=== PATIENT | female | born 1955 | race Caucasian/White ===

== ENCOUNTER 2022-02-19 09:17 | Outpatient (REF) | payer MEDICARE, SELFPAY ==
[2022-02-19 11:33] LABS: MANUAL DIFF FLAG NO
[2022-02-19 11:38] LABS: Basophils Percent Auto 0.2 % (0-2); Eosinophils Absolute Auto 0.1 X10*3/uL (0.0-0.4); Eosinophils Percent Auto 1.1 % (0-4); Hematocrit 44.4 % (37.0-47.0); Hemoglobin 14.2 g/dl (12.0-16.0); Imm Gran Abs Auto 0.01 X10*3/uL (0.00-0.03); Imm Gran Pct Auto 0.2 % (0.0-0.4); Lymphocytes Absolute Auto 1.6 X10*3/uL (1.2-4.9); Lymphocytes Percent Auto 25.3 % (20-40); Mean Corpuscular Hemoglobin 29.9 pg (27.0-33.0); Mean Corpuscular Volume 93.5 fL (80.0-98.0); Mean Platelet Volume 10.1 fL (9.4-12.3); Monocytes Absolute Auto 0.5 X10*3/uL (0.1-1.2); Neutrophils Percent Auto 65.2 % (45-73); Platelet Count 210 X10*3/uL (160-400); Red Blood Count 4.75 X10*6/uL (4.20-5.50); Red Cell Distribution Width 12.7 % (11.0-16.0); White Blood Count 6.1 X10*3/uL (4.8-10.8)
[2022-02-19 12:09] LABS: Free T4 (Free Thyroxine) 1.29 ng/dL (0.71-1.85); Thyroid Stimulating Hormone 0.34 uIU/mL (0.32-4.0)
[2022-02-19 12:14] LABS: Alanine Aminotransferase 22 U/L (0-31); Albumin Level 4.5 g/dL (3.5-5.0); Alkaline Phosphatase 42 U/L (39-117); Anion Gap 14 (12-20); Aspartate Amino Transferase 26 U/L (5-31); Bilirubin Total 1.1 mg/dL (0.0-1.0); Blood Urea Nitrogen 16 mg/dL (9-16); Calcium 9.3 mg/dL (8.4-10.2); Carbon Dioxide 25 mmol/L (22-29); Chloride 107 mmol/L (96-108); Cholesterol 152 mg/dL; Estimated Glomerular Filt Rate > 60; Glucose Fasting 89 mg/dL (60-99); HDL Cholesterol 62 mg/dL; LDL Cholesterol Calculated 72 mg/dl; Potassium 4.1 mmol/L (3.3-5.1); Sodium 142 mmol/L (135-145); Total Protein 7.1 g/dL (6.5-8.0); Triglycerides 94 mg/dL
== END 2022-02-19 09:18 | disposition home or self-care (01) ==
LOC: HO.HMGCLDS 09:17
PROVIDERS: Visit Provider Internal Medicine
DX: E03.9 Hypothyroidism, unspecified (principal); E78.5 Hyperlipidemia, unspecified; F41.1 Generalized anxiety disorder; F41.0 Panic disorder [episodic paroxysmal anxiety]; D12.6 Benign neoplasm of colon, unspecified; M19.90 Unspecified osteoarthritis, unspecified site
CPT/HCPCS: 36415; 80053; 80061; 84439; 84443; 85025

== ENCOUNTER 2022-04-01 10:14 | Outpatient (REF) | payer MEDICARE, SELFPAY | END 2022-04-01 10:15 | disposition home or self-care (01) | LOC: HO.HMGCLDS 10:14 | PROVIDERS: PCP Internal Medicine; Visit Provider Internal Medicine | DX: Z13.89 Encounter for screening for other disorder (principal) ==

== ENCOUNTER 2022-11-14 09:03 | Outpatient (REF) | payer MEDICARE, SELFPAY ==
[2022-11-14 14:14] LABS: Thyroid Stimulating Hormone 0.89 uIU/mL (0.32-4.0); Vitamin D 25-OH Total 31.8 ng/mL (>30)
[2022-11-14 14:30] LABS: Alanine Aminotransferase 29 U/L (0-31); Aspartate Amino Transferase 30 U/L (5-31); Cholesterol 160 mg/dL; HDL Cholesterol 72 mg/dL; LDL Cholesterol Calculated 75 mg/dl; Triglycerides 65 mg/dL
== END 2022-11-14 09:04 | disposition home or self-care (01) ==
LOC: HO.HMGCLDS 09:03
PROVIDERS: PCP Internal Medicine; Visit Provider Internal Medicine
DX: E03.9 Hypothyroidism, unspecified (principal); E78.5 Hyperlipidemia, unspecified; F41.0 Panic disorder [episodic paroxysmal anxiety]
CPT/HCPCS: 36415; 80061; 82306; 84439; 84443; 84450; 84460

== ENCOUNTER 2023-08-11 08:13 | Outpatient (REF) | payer MEDICARE, SELFPAY ==
[2023-08-11 12:19] LABS: Alanine Aminotransferase 28 U/L (0-31); Aspartate Amino Transferase 30 U/L (5-31); Cholesterol 158 mg/dL (<200); HDL Cholesterol 65 mg/dL (>40); LDL Cholesterol Calculated 80 mg/dL (<100); Triglycerides 65 mg/dL (<150)
[2023-08-11 12:31] LABS: Free T4 (Free Thyroxine) 0.85 ng/dL (0.71-1.85); Thyroid Stimulating Hormone 1.51 uIU/mL (0.32-4.0)
== END 2023-08-11 08:14 | disposition home or self-care (01) ==
LOC: HO.HMGCLDS 08:13
PROVIDERS: PCP Internal Medicine; Visit Provider Internal Medicine
DX: E03.9 Hypothyroidism, unspecified (principal); E78.5 Hyperlipidemia, unspecified
CPT/HCPCS: 36415; 80061; 84439; 84443; 84450; 84460

== ENCOUNTER 2023-08-18 09:20 | Outpatient (AMB) | payer MEDICARE, SELFPAY ==
[2023-08-18 09:26] VITALS: BP 112/72; PULSE 58; O2SAT 99; BMI 21.8
--- NOTE | 2023-08-18 09:30 | A.OFFPC_ITS ---
Vital Signs 08/18/23 09:26 Height 5 ft 3 in Weight 123 lb BMI 21.8 BP 112/72 Blood Pressure Location Rt brachial Position Sitting Pulse 58 Pulse Oximetry (%) 99 Oxygen Delivery Method Room Air Intake Visit Reasons: 6m follow up on lipids+thyroid, no AWV per PT Allergies Penicillins Adverse Reaction (Verified 08/18/23 09:54) Hives Medication List - Last Reconciled 08/18/23 by Yany Santos MD acetaminophen ER 650 mg PO Q12H alprazolam 0.25 mg PO DAILY PRN aspirin (Adult Low Dose Aspirin) 81 mg PO DAILY calcium carbonate (Calcium) 50 mg PO DAILY cholecalciferol (vitamin D3) 50 mcg PO DAILY denosumab (Prolia) 60 mg subcut [id number] diclofenac sodium 1% 2 grams topical QID estradiol 0.01%(0.1mg/gram) 0.25 appful vaginal 3XW ezetimibe 10 mg PO DAILY fluoxetine 20 mg PO DAILY levothyroxine 88 mcg PO DAILY simvastatin 40 mg PO BEDTIME Tobacco use date assessed: 02/17/23 HPI 6m follow up on lipids+thyroid, no AWV per PT HPI Details 67-year-old lady here today for follow-u p on her dyslipidemia and hypothyroidism, currently compliant with taking her medications which includes simvastatin, ezetimibe and levothyroxine. Has been feeling well on present treatment, recent fasting labs showed lipids, thyroid levels are within normal limits. [facility] Medical History Acquired hypothyroidism Hyperlipidemia Generalized anxiety disorder with panic attacks Bilateral hearing loss Varicose veins of both lower extremities Chronic osteoarthritis Tubular adenoma of colon Osteoporosis Surgical History S/P tubal ligation S/P right oophorectomy Family History Brother Bipolar 1 disorder Mental health disorder Mother Generalized anxiety disorder Sister Skin cancer of face Oral cancer Father Oral cancer Social History Housing: House Patient Tobacco Use Status: Never used Tobacco e-Cigarette/Vaping Use: Never Used service: No Current occupational status: retired Cognitive needs: No Hearing needs: No Vision needs: Yes Questionnaire PHQ-9 Over the last 2 weeks, how often have you been bothered by any of the following problems? 1. Little interest or pleasure in doing things: not at all 2. Feeling down, depressed, or hopeless: not at all 3. Trouble falling or staying asleep, or sleeping too much: not at all 4. Feeling tired or having little energy: not at all 5. Poor appetite or overeating: not at all 6. Feeling bad about yourself - or that you are a failure or have let yourself or your family down: not at all 7. Trouble concentrating on things, such as reading the newspaper or watching television: not at all 8. Moving or speaking so slowly that other people could have noticed. Or the opposite - being so fidgety or restless that you have been moving around a lot more than usual: not at all 9. Thoughts that you would be better off or of hurting yourself in some way: not at all Total score: 0 Depression Screening Interpretation: Negative 97900 - PHQ-9 Billing: Yes Source: Developed by Drs. Best Huizar, Teodora Briggs, Marques Perez and colleagues, with an educational shani from [employer]. Thrive Questionnaire Date Thrive assessed: 08/18/23 I am a: Patient What is your living situation today?: I have a steady place to live Within the past 12 months, did the food you bought not last and you didn't have the money to get more?: Never true Within the past 12 months, did you worry whether your food would run out before you got money to buy more?: Never true Do you have trouble paying for medicines?: No Do you have trouble getting transportation to medical appointments?: No Do you have trouble paying your heating and electricity bill?: No Do you have trouble taking care of your child, family member or friend?: No Do you have trouble with day-to-day activities such as bathing, preparing meals, shopping, managing finances, etc.?: No Are you currently unemployed and looking for a job?: No Are you interested in more education?: No Please select the resources that you would like help with: None AUDIT C Alcohol Use Questionnaire (AUDIT-C) 1. How often do you have a drink containing alcohol?: Never Total Score: 0 LYNN-7 AMB Questionnaire LYNN-7 Date LYNN - 7 assessed: 08/18/23 Feeling nervous, anxious, or on edge: 0 = Not at all Not being able to stop or control worryin = Not at all Worrying too much about different things: 0 = Not at all Trouble relaxin = Not at all Being so restless that it is hard to sit still: 0 = Not at all Becoming easily annoyed or irritable: 0 = Not at all Feeling afraid as if something awful might happen: 0 = Not at all Total LYNN-7 score (0-4 normal; 5-9 mild; 10-14 moderate; 15-21 severe): 0 Source: Developed by Drs. Best Huizar, Teodora Briggs, Marques Perez and colleagues, with an educational shani from [employer]. LYNN-7 Assessment Billing LYNN-7 Assessment Tool: LYNN-7 Assessment 89584 Review of Systems Const Denies fatigue, Denies fever(s), Denies headache(s) and Denies weakness Eyes Details: sees Dr Guerra , needs right cataract removed Reports blurry vision ENT Denies dizziness, Denies headache(s), Denies nasal congestion and Denies nasal discharge Card Denies chest pain, Denies chest pain with activity, Denies rapid heart rate, Denies irregular heart rhythm, Denies lightheadedness, Denies dyspnea and Denies dyspnea on exertion Resp Denies chest congestion, Denies cough, Denies dyspnea, Denies dyspnea on exertion and Denies wheezing GI Denies abdominal pain, Denies change in bowel habits and Denies heartburn Reports no additional complaints Musc Reports no additional complaints Neuro Denies dizziness, Denies headache(s) and Denies weakness Psych Reports no additional complaints Endo Denies fatigue, Denies polydipsia and Denies polyuria Ric/Lymph Denies easy bruising Aller/Immun Denies seasonal rhinorrhea and Denies wheezing Physical exam (Primary Care) Vital Signs: Last Vital Signs Pulse 58 08/18/23 09:26 BP 112/72 08/18/23 09:26 Pulse Ox 99 08/18/23 09:26 Oxygen Delivery Method Room Air 08/18/23 09:26 BMI result Body Mass Index 21.8 Tobacco/Smoking Status: Tobacco use Status Tobacco use date assessed 02/17/23 08/18/23 09:33 Patient Tobacco Use Status Never used Tobacco 08/18/23 09:33 e-Cigarette/Vaping Use Never Used 08/18/23 09:33 Depression Screening Interpretation: Negative Thrive Assessment: Date of Thrive Assessment Date Thrive assessed 02/15/22 08/18/23 09:33 Const General: comfortable and no acute distress Orientation/consciousness: patient oriented x3 HENMT Head: Yes normocephalic General nose exam: Normal external nose present Face and sinus: Yes face symmetric Mouth: Normal oral and palatal mucosa present and moist mucous membranes Eyes General: appearance normal, both eyes and all related structures Neck Neck: Yes full ROM, Yes no lymphadenopathy and Yes supple Thyroid: Thyroid normal (Nonpalpable) Resp Effort & Inspection: normal respiratory effort and able to speak in complete sentences Auscultation: clear to auscultation bilaterally Cardio Rate: regular rate Rhythm: regular rhythm Heart sounds: S1 normal heart sound present and S2 normal heart sound present GI Palpation (GI): Soft to palpation, nontender, no guarding and no masses Auscultation: normal bowel sounds Neuro General: patient oriented x3, gait normal, tone normal, no focal motor deficits and CN's II-XI intact bilaterally Extrem General: Yes full ROM, Yes no joint enlargement, Yes no pedal edema and Yes normal gait Psych Appearance: grossly normal Mental Status: mental status grossly normal Speech and movement: Normal speech and movement present Affect: normal affect Attitude: cooperative Thought process: Normal thought process present Results Reviewed Results Reviewed: SPEC : [id number] MAHI: 08/11/23 STATUS: COMP REQ : [id number] RECD: 08/11/[address]: Yany Santos MD COMP: 08/11/23 ENTERED: 08/11/[address]: ORDERED: AST, ALT, Lipid Panel, Free T4, TSH Test Result Flag Reference Site AST (GOT) 30 5-31 U/L ALT (GPT) 28 0-31 U/L Triglyceride 65 <150 mg/dL Desirable Triglyceride: less than 150 mg/dL Borderline High Triglyceride 150-199 mg/dL High Triglyceride: 200-499 mg/dL Very High Triglyceride: greater than or equal to 5OO mg/dL Cholesterol 158 <200 mg/dL Desirable Cholesterol: less than 200 mg/dL Borderline High Cholesterol: 200-239 mg/dL High Cholesterol: greater than 239 mg/dL LDL Calculated 80 <100 mg/dL Desirable LDL: less than 100 mg/dL Near Optimal/Above Optimal LDL: 110-129 mg/dL Borderline High LDL: 130-159 mg/dL High LDL: 160-189 mg/dL Very High LDL: greater than or equal to 190 mg/dL HDL 65 >40 mg/dL Desirable HDL: greater than 40 mg/dL Note: This HDL assay may give artificially low results in patients with liver disease. Free T4 0.85 0.71-1.85 ng/dL TSH 3rd Gen. 1.51 0.32-4.0 uIU/mL TSH 3rd Generation ([facility]) Assessment and Plan Assessment & Plan (1) Acquired hypothyroidism: Code(s): E03.9 - Hypothyroidism, unspecified Plan: thyroid levels are within normal limits. Will continue on levothyroxine 88 mcg once a day in a.m., recheck again levels in 3 months (2) Hyperlipidemia: Code(s): E78.5 - Hyperlipidemia, unspecified Qualifiers: Hyperlipidemia type: pure hypercholesterolemia Qualified Code(s): E78.00 - Pure hypercholesterolemia, unspecified Plan: Reviewed recent fasting lipid profile with patient with levels within normal limits . Continue with simvastatin 40 mg at bedtime and ezetimibe 10 mg once a day. , in addition to adherence to low-cholesterol diet and regular exercise, at least 30 minutes 3 to 4 times a week. Advised patient to make healthy food choices, eat more fruits, vegetables, whole grains, wild caught fish and low-fat dairy. Limit amount of meat and fried or fatty food products, as well as processed foods and fast foods. Follow-up scheduled with repeat fasting lipid panel in 3 months. (3) Generalized anxiety disorder with panic attacks: Code(s): F41.1 - Generalized anxiety disorder; F41.0 - Panic disorder [episodic paroxysmal anxiety] Plan: Stable and controlled on fluoxetine 20 mg daily and alprazolam taken as needed. Refill sent on latter Orders: Orders Thyroid Stimulating Hormone 3 Months E03.9 - Hypothyroidism, unspecified, E78.5 - Hyperlipidemia, unspecified Free T4 (Free Thyroxine) 3 Months E03.9 - Hypothyroidism, unspecified, E78.5 - Hyperlipidemia, unspecified Lipid Panel 3 Months E03.9 - Hypothyroidism, unspecified, E78.5 - Hyperlipidemia, unspecified Aspartate Amino Transferase 3 Months E03.9 - Hypothyroidism, unspecified, E78.5 - Hyperlipidemia, unspecified Alanine Aminotransferase 3 Months E03.9 - Hypothyroidism, unspecified, E78.5 - Hyperlipidemia, unspecified Medications: Refilled alprazolam 0.25 mg PO DAILY PRN 30 tabs 0RF acute anxiety attack Coding Level of Care Code Est Pt Level 3 (15508) Diagnoses Acquired hypothyroidism E03.9 Pure hypercholesterolemia E78.00 Hyperlipidemia type: pure hypercholesterolemia Generalized anxiety disorder with panic attacks F41.1; F41.0 Additional Codes LYNN-7 Assessment Billing - LYNN-7 Assessment Tool: LYNN-7 Assessment [id number] ([id number])
== END 2023-08-18 10:33 | disposition home or self-care (01) ==
PROVIDERS: Visit Provider Internal Medicine
DX: E03.9 Hypothyroidism, unspecified (principal); E78.00 Pure hypercholesterolemia, unspecified; F41.1 Generalized anxiety disorder; F41.0 Panic disorder [episodic paroxysmal anxiety]
CPT/HCPCS: 99213

== ENCOUNTER 2023-08-29 11:30 | Outpatient (AMB) | payer MEDICARE, SELFPAY ==
--- NOTE | 2023-08-29 11:41 | MHC.PC.OV ---
Vital Signs 08/29/23 11:42 Height 5 ft 3 in Weight 124 lb BMI 22.0 BP 100/66 Blood Pressure Location Rt brachial Position Sitting Pulse 60 Pulse Source Pulse Oximeter Pulse Oximetry (%) 99 Oxygen Delivery Method Room Air Intake Visit Reasons: 09/03/23 Cataract surgery Left Eye Intake Note: patient is here today for cataract surgery left eye on 09/03/23 Manager Sustainability Required: No Accompanied by: Self / Same As Patient Allergies Penicillins Adverse Reaction (Verified 08/29/23 12:05) Hives Medication List - Last Reconciled 08/29/23 by Yany Santos MD acetaminophen ER 650 mg PO Q12H alprazolam 0.25 mg PO DAILY PRN aspirin (Adult Low Dose Aspirin) 81 mg PO DAILY calcium carbonate (Calcium) 50 mg PO DAILY cholecalciferol (vitamin D3) 50 mcg PO DAILY denosumab (Prolia) 60 mg subcut [id number] diclofenac sodium 1% 2 grams topical QID estradiol 0.01%(0.1mg/gram) 0.25 appful vaginal 3XW ezetimibe 10 mg PO DAILY fluoxetine 20 mg PO DAILY levothyroxine 88 mcg PO DAILY simvastatin 40 mg PO BEDTIME Tobacco use date assessed: 08/29/23 Fall risk assessment: No Falls in past year Last assessed Fall Risk: 08/29/23 Dental Screening Dental Screen Date: 08/29/23 Did you have a dental visit in the last 12 months?: Yes Did you have a dental problem in the last 6 months where you did not have access to dental care?: No Was dental information given to patient?: Patient has dentist HPI 09/03/23 Cataract surgery Left Eye HPI Details 67-year-old lady here today for preoperative exam for cataract surgery left eye scheduled for 09/03/[address] Guerra, and in 2 weeks for the right eye. She has acquired hypothyroidism, hyperlipidemia, generalized anxiety disorder, osteoarthritis, currently stable and controlled on present treatment. She gets Prolia infusions every 6 months for her osteoporosis. She has generalized anxiety disorder and panic attacks, currently stable and controlled on fluoxetine and takes alprazolam as needed for acute attacks. She has been feeling well, with no complaints at present time. [facility] Medical History Acquired hypothyroidism Hyperlipidemia Generalized anxiety disorder with panic attacks Bilateral hearing loss Varicose veins of both lower extremities Chronic osteoarthritis Tubular adenoma of colon Osteoporosis Surgical History S/P tubal ligation S/P right oophorectomy Family History Brother Bipolar 1 disorder Mental health disorder Mother Generalized anxiety disorder Sister Skin cancer of face Oral cancer Father Oral cancer Social History Housing: House Patient Tobacco Use Status: Never used Tobacco e-Cigarette/Vaping Use: Never Used service: No Current occupational status: retired Cognitive needs: No Hearing needs: No Vision needs: Yes Questionnaire Thrive Questionnaire Date Thrive assessed: 08/18/23 AUDIT C Alcohol Use Questionnaire (AUDIT-C) 1. How often do you have a drink containing alcohol?: Never Total Score: 0 LYNN-7 AMB Questionnaire LYNN-7 Date LYNN - 7 assessed: 08/18/23 Source: Developed by Drs. Best Huizar, Teodora Briggs, Marques Perez and colleagues, with an educational shani from [employer]. Review of Systems Const Denies fatigue, Denies fever(s), Denies headache(s) and Denies weakness Eyes Reports blurry vision ENT Denies dizziness, Denies headache(s), Denies nasal congestion and Denies nasal discharge Card Denies chest pain, Denies chest pain with activity, Denies rapid heart rate, Denies irregular heart rhythm, Denies lightheadedness, Denies dyspnea and Denies dyspnea on exertion Resp Denies chest congestion, Denies cough, Denies dyspnea, Denies dyspnea on exertion and Denies wheezing GI Denies abdominal pain, Denies change in bowel habits and Denies heartburn Reports no additional complaints Musc Reports no additional complaints Neuro Denies dizziness, Denies headache(s) and Denies weakness Psych Reports no additional complaints Endo Denies fatigue, Denies polydipsia and Denies polyuria Ric/Lymph Denies easy bruising Aller/Immun Denies seasonal rhinorrhea and Denies wheezing Physical exam (Primary Care) Vital Signs: Last Vital Signs Pulse 60 08/29/23 11:42 BP 100/66 08/29/23 11:42 Pulse Ox 99 08/29/23 11:42 Oxygen Delivery Method Room Air 08/29/23 11:42 BMI result Body Mass Index 22.0 Tobacco/Smoking Status: Tobacco use Status Tobacco use date assessed 08/29/23 08/29/23 11:50 Patient Tobacco Use Status Never used Tobacco 08/29/23 11:42 e-Cigarette/Vaping Use Never Used 08/29/23 11:42 Thrive Assessment: Date of Thrive Assessment Date Thrive assessed 08/18/23 08/29/23 11:42 Const General: comfortable and no acute distress Orientation/consciousness: patient oriented x3 HENMT Head: Yes normocephalic General nose exam: Normal external nose present Face and sinus: Yes face symmetric Mouth: Normal oral and palatal mucosa present and moist mucous membranes Eyes General: appearance normal, both eyes and all related structures Neck Neck: Yes full ROM, Yes no lymphadenopathy and Yes supple Thyroid: Thyroid normal (Nonpalpable) Resp Effort & Inspection: normal respiratory effort and able to speak in complete sentences Auscultation: clear to auscultation bilaterally Cardio Rate: regular rate Rhythm: regular rhythm Heart sounds: S1 normal heart sound present and S2 normal heart sound present GI Palpation (GI): Soft to palpation, nontender, no guarding and no masses Auscultation: normal bowel sounds General: Yes no CVA tenderness Back/Spine/Pelvis Back: no CVA tenderness and No back tenderness Skin General skin exam: no rashes or lesions noted Neuro General: patient oriented x3, gait normal, tone normal, no focal motor deficits and CN's II-XI intact bilaterally Extrem General: Yes full ROM, Yes no joint enlargement, Yes no pedal edema and Yes normal gait Psych Appearance: grossly normal Mental Status: mental status grossly normal Speech and movement: Normal speech and movement present Affect: normal affect Attitude: cooperative Thought process: Normal thought process present Assessment and Plan Assessment & Plan (1) Preoperative examination: Code(s): Z01.818 - Encounter for other preprocedural examination Plan: 67 year old lady here for pre-op clearance for cataract surgery scheduled for 09/03/2023 for the left eye and 2 weeks after for the right eye requested by Dr. Guerra. She has acquired hypothyroidism, osteoporosis, osteoarthritis, dyslipidemia, generalized anxiety disorder, currently stable controlled on present treatment. Physical exam is unremarkable. Patient with low cardiac risk index for proposed surgery (2) Chronic osteoarthritis: Code(s): M19.90 - Unspecified osteoarthritis, unspecified site Plan: Takes acetaminophen ER 650 mg every 12 hours as needed. (3) Acquired hypothyroidism: Code(s): E03.9 - Hypothyroidism, unspecified Plan: Thyroid levels are within normal limits. Continue with levothyroxine 88 mcg once a day in a.m. (4) Hyperlipidemia: Code(s): E78.5 - Hyperlipidemia, unspecified Qualifiers: Hyperlipidemia type: pure hypercholesterolemia Qualified Code(s): E78.00 - Pure hypercholesterolemia, unspecified Plan: Reviewed recent fasting lipid profile with patient with levels within normal limit . Continue with a ezetimibe and simvastatin , in addition to adherence to low-cholesterol diet and regular exercise, at least 30 minutes 3 to 4 times a week. Advised patient to make healthy food choices, eat more fruits, vegetables, whole grains, wild caught fish and low-fat dairy. Limit amount of meat and fried or fatty food products, as well as processed foods and fast foods. (5) Osteoporosis: Comment: sees Dr Ayala - on prolia Code(s): M81.0 - Age-related osteoporosis without current pathological fracture Qualifiers: Osteoporosis type: age-related Presence of current pathological fracture: without current pathological fracture Qualified Code(s): M81.0 - Age-related osteoporosis without current pathological fracture Plan: Currently on Prolia, cholecalciferol and calcium supplements. Followed by her arm rheumatology (6) Generalized anxiety disorder with panic attacks: Code(s): F41.1 - Generalized anxiety disorder; F41.0 - Panic disorder [episodic paroxysmal anxiety] Plan: Continue with fluoxetine and alprazolam as needed for acute anxiety attacks. (7) Bilateral hearing loss: Comment: has hearing aids from [employer] Code(s): H91.93 - Unspecified hearing loss, bilateral Qualifiers: Hearing loss type: unspecified Qualified Code(s): H91.93 - Unspecified hearing loss, bilateral Plan: Wears hearing aid Coding Level of Care Code Est Pt Level 4 (33390) Diagnoses Preoperative examination Z01.818 Chronic osteoarthritis M19.90 Acquired hypothyroidism E03.9 Pure hypercholesterolemia E78.00 Hyperlipidemia type: pure hypercholesterolemia Age-related osteoporosis without current pathological fracture M81.0 Osteoporosis type: age-related Presence of current pathological fracture: without current pathological fracture Generalized anxiety disorder with panic attacks F41.1; F41.0 Bilateral hearing loss, unspecified hearing loss type H91.93 Hearing loss type: unspecified
[2023-08-29 11:42] VITALS: BP 100/66; PULSE 60; O2SAT 99; BMI 22.0
== END 2023-08-29 13:00 | disposition home or self-care (01) ==
PROVIDERS: PCP Internal Medicine; Visit Provider Internal Medicine
DX: Z01.818 Encounter for other preprocedural examination (principal); M19.90 Unspecified osteoarthritis, unspecified site; E03.9 Hypothyroidism, unspecified; E78.00 Pure hypercholesterolemia, unspecified; M81.0 Age-related osteoporosis without current pathological fracture; F41.1 Generalized anxiety disorder; F41.0 Panic disorder [episodic paroxysmal anxiety]; H91.93 Unspecified hearing loss, bilateral
CPT/HCPCS: 99214

== ENCOUNTER 2024-04-06 10:20 | Outpatient (AMB) | payer MEDICARE, SELFPAY ==
[2024-04-06 10:26] VITALS: BP 100/66; PULSE 64; O2SAT 96; BMI 22.8
--- NOTE | 2024-04-06 10:26 | MHC.PC.OV ---
Vital Signs 04/06/24 10:26 Height 5 ft 3 in Weight 129 lb BMI 22.8 BP 100/66 Blood Pressure Location Lt brachial Position Sitting Pulse 64 Pulse Source Pulse Oximeter Pulse Oximetry (%) 96 Oxygen Delivery Method Room Air Intake Visit Reasons: f/u anxiety medication Allergies Penicillins Adverse Reaction (Verified 04/06/24 10:51) Hives Medication List - Last Reconciled 04/06/24 by Yany Santos MD acetaminophen ER 650 mg PO Q12H alprazolam 0.25 mg PO DAILY PRN aspirin (Adult Low Dose Aspirin) 81 mg PO DAILY calcium carbonate (Calcium 600) 50 mg PO DAILY cholecalciferol (vitamin D3) 50 mcg PO DAILY denosumab (Prolia) 60 mg subcut [id number] diclofenac sodium 1% 2 grams topical QID estradiol 0.01%(0.1mg/gram) 0.25 appful vaginal 3XW ezetimibe 10 mg PO DAILY fluoxetine 20 mg PO DAILY levothyroxine 88 mcg PO DAILY simvastatin 40 mg PO BEDTIME Tobacco use date assessed: 04/06/24 Fall risk assessment: No Falls in past year Last assessed Fall Risk: 04/06/24 Dental Screening Dental Screen Date: 04/06/24 Did you have a dental visit in the last 12 months?: Yes Did you have a dental problem in the last 6 months where you did not have access to dental care?: No Was dental information given to patient?: Patient has dentist HPI f/u anxiety medication HPI Details 68-year-old lady here today for follow-up on her generalized anxiety disorder. She has had it now for the last 20 years, has been on alprazolam daily and currently doing well on current dose of fluoxetine 20 mg once a day. Has been feeling well with no complaints at present time. She is requesting to have her immunity status testing checked with regards to varicella would like to see if she still has titers from previous infection, before getting the Shingrix vaccine. REPLACED BY [facility] Medical History Acquired hypothyroidism Hyperlipidemia Generalized anxiety disorder with panic attacks Bilateral hearing loss Varicose veins of both lower extremities Chronic osteoarthritis Tubular adenoma of colon Osteoporosis Surgical History S/P tubal ligation S/P right oophorectomy Family History Brother Bipolar 1 disorder Mental health disorder Mother Generalized anxiety disorder Sister Skin cancer of face Oral cancer Father Oral cancer Social History Housing: House Patient Tobacco Use Status: Never used Tobacco e-Cigarette/Vaping Use: Never Used service: No Current occupational status: retired Cognitive needs: No Hearing needs: No Vision needs: Yes Questionnaire PHQ-9 Over the last 2 weeks, how often have you been bothered by any of the following problems? 1. Little interest or pleasure in doing things: not at all 2. Feeling down, depressed, or hopeless: not at all 3. Trouble falling or staying asleep, or sleeping too much: not at all 4. Feeling tired or having little energy: not at all 5. Poor appetite or overeating: not at all 6. Feeling bad about yourself - or that you are a failure or have let yourself or your family down: not at all 7. Trouble concentrating on things, such as reading the newspaper or watching television: not at all 8. Moving or speaking so slowly that other people could have noticed. Or the opposite - being so fidgety or restless that you have been moving around a lot more than usual: not at all 9. Thoughts that you would be better off or of hurting yourself in some way: not at all Total score: 0 Depression Screening Interpretation: Negative (Controlled on current medication) Depression Screening Done: Yes 80395 - PHQ-9 Billing: Yes Source: Developed by Drs. Best Huizar, Teodora Briggs, Marques Perez and colleagues, with an educational shani from [employer]. Thrive Questionnaire Date Thrive assessed: 04/06/24 I am a: Patient What is your living situation today?: I have a steady place to live Within the past 12 months, did the food you bought not last and you didn't have the money to get more?: Never true Within the past 12 months, did you worry whether your food would run out before you got money to buy more?: Never true Do you have trouble paying for medicines?: No Do you have trouble getting transportation to medical appointments?: No Do you have trouble paying your heating and electricity bill?: No Do you have trouble taking care of your child, family member or friend?: No Do you have trouble with day-to-day activities such as bathing, preparing meals, shopping, managing finances, etc.?: No Are you currently unemployed and looking for a job?: No Are you interested in more education?: No THRIVE Score: 0 AUDIT C Alcohol Use Questionnaire (AUDIT-C) 1. How often do you have a drink containing alcohol?: Never 3. How often do you have six or more drinks on one occasion?: Never Total Score: 0 LYNN-7 AMB Questionnaire LYNN-7 Date LYNN - 7 assessed: 04/06/24 Feeling nervous, anxious, or on edge: 0 = Not at all Not being able to stop or control worryin = Not at all Worrying too much about different things: 0 = Not at all Trouble relaxin = Not at all Being so restless that it is hard to sit still: 0 = Not at all Becoming easily annoyed or irritable: 0 = Not at all Feeling afraid as if something awful might happen: 0 = Not at all Total LYNN-7 score (0-4 normal; 5-9 mild; 10-14 moderate; 15-21 severe): 0 Source: Developed by Drs. Best Huizar, Teodora Briggs, Marques Perez and colleagues, with an educational shani from [employer]. LYNN-7 Assessment Billing LYNN-7 Assessment Tool: LYNN-7 Assessment 07734 Review of Systems Const Denies fatigue, Denies headache(s) and Denies weakness Eyes Reports requires corrective lenses ENT Denies dizziness, Denies headache(s), Denies nasal congestion and Denies nasal discharge Card Denies chest pain, Denies chest pain with activity, Denies rapid heart rate, Denies irregular heart rhythm, Denies lightheadedness, Denies dyspnea and Denies dyspnea on exertion Resp Denies chest congestion, Denies cough, Denies dyspnea, Denies dyspnea on exertion and Denies wheezing GI Denies abdominal pain, Denies change in bowel habits and Denies heartburn Reports no additional complaints Musc Reports no additional complaints Neuro Denies dizziness, Denies headache(s) and Denies weakness Psych Reports no additional complaints Endo Denies fatigue, Denies polydipsia and Denies polyuria Ric/Lymph Denies easy bruising Aller/Immun Denies seasonal rhinorrhea and Denies wheezing Physical exam (Primary Care) Vital Signs: Last Vital Signs Pulse 64 04/06/24 10:26 BP 100/66 04/06/24 10:26 Pulse Ox 96 04/06/24 10:26 Oxygen Delivery Method Room Air 04/06/24 10:26 BMI result Body Mass Index 22.8 Tobacco/Smoking Status: Tobacco use Status Tobacco use date assessed 04/06/24 04/06/24 10:29 Patient Tobacco Use Status Never used Tobacco 04/06/24 10:29 e-Cigarette/Vaping Use Never Used 04/06/24 10:29 PHQ-9: PHQ-9 Score PHQ-9: Total score 0 04/06/24 11:16 Depression Screening Interpretation: Negative (Controlled on current medication) Thrive Assessment: Date of Thrive Assessment Date Thrive assessed 04/06/24 04/06/24 11:16 Const General: comfortable and no acute distress Orientation/consciousness: patient oriented x3 HENMT Head: Yes normocephalic General nose exam: Normal external nose present Face and sinus: Yes face symmetric Mouth: Normal oral and palatal mucosa present and moist mucous membranes Eyes General: appearance normal, both eyes and all related structures Neck Neck: Yes full ROM, Yes no lymphadenopathy and Yes supple Thyroid: Thyroid normal (Nonpalpable) Resp Effort & Inspection: normal respiratory effort and able to speak in complete sentences Auscultation: clear to auscultation bilaterally Cardio Rate: regular rate Rhythm: regular rhythm Heart sounds: S1 normal heart sound present and S2 normal heart sound present GI Palpation (GI): Soft to palpation, nontender, no guarding and no masses Auscultation: normal bowel sounds Neuro General: patient oriented x3, gait normal, tone normal, no focal motor deficits and CN's II-XI intact bilaterally Extrem General: Yes full ROM, Yes no joint enlargement, Yes no pedal edema and Yes normal gait Psych Appearance: grossly normal Mental Status: mental status grossly normal Speech and movement: Normal speech and movement present Affect: normal affect Attitude: cooperative Thought process: Normal thought process present Assessment and Plan Assessment & Plan (1) Generalized anxiety disorder with panic attacks: Code(s): F41.1 - Generalized anxiety disorder; F41.0 - Panic disorder [episodic paroxysmal anxiety] Plan: Stable and controlled on fluoxetine 20 mg taken once a day and takes alprazolam 0.25 mg at bedtime, which she has been doing now for the last 20 years per patient (2) Immunity status testing: Code(s): Z01.84 - Encounter for antibody response examination Plan: Varicella IgG antibody ordered Orders: Orders Varicella IgG Antibody 04/06/24 Z01.84 - Encounter for antibody response examination Medications: Refilled alprazolam 0.25 mg PO DAILY PRN 90 tabs 0RF acute anxiety attack fluoxetine 20 mg PO DAILY 90 tabs 3RF Coding Level of Care Code Est Pt Level 4 (11443) Diagnoses Generalized anxiety disorder with panic attacks F41.1; F41.0 Immunity status testing Z01.84 Additional Codes LYNN-7 Assessment Billing - LYNN-7 Assessment Tool: LYNN-7 Assessment 12549 ([id number])
== END 2024-04-06 11:10 | disposition home or self-care (01) ==
PROVIDERS: PCP Internal Medicine; Visit Provider Internal Medicine
DX: F41.1 Generalized anxiety disorder (principal); F41.0 Panic disorder [episodic paroxysmal anxiety]; Z01.84 Encounter for antibody response examination
CPT/HCPCS: 99214

== ENCOUNTER 2024-04-13 08:59 | Outpatient (REF) | payer MEDICARE, SELFPAY ==
[2024-04-13 11:26] LABS: Alanine Aminotransferase 24 U/L (0-31); Aspartate Amino Transferase 29 U/L (5-31); Cholesterol 186 mg/dL (<200); HDL Cholesterol 73 mg/dL (>40); LDL Cholesterol Calculated 99 mg/dL (<100); Triglycerides 70 mg/dL (<150)
[2024-04-13 11:49] LABS: Free T4 (Free Thyroxine) 0.83 ng/dL (0.71-1.85); Thyroid Stimulating Hormone 9.75 uIU/mL (0.32-4.0)
== END 2024-04-13 09:00 | disposition home or self-care (01) ==
LOC: HO.HMGCLDS 08:59
PROVIDERS: PCP Internal Medicine; Visit Provider Internal Medicine
DX: E03.9 Hypothyroidism, unspecified (principal); E78.5 Hyperlipidemia, unspecified; Z01.84 Encounter for antibody response examination
CPT/HCPCS: 36415; 80061; 84439; 84443; 84450; 84460; 86787

== ENCOUNTER 2024-04-19 08:11 | Outpatient (AMB) | payer MEDICARE, SELFPAY ==
--- NOTE | 2024-04-19 08:23 | A.OFFPC_ITS ---
Vital Signs 04/19/24 08:24 Height 5 ft 3 in Intake Visit Reasons: AWV Allergies Penicillins Adverse Reaction (Verified 04/06/24 10:51) Hives Tobacco use date assessed: 04/06/24 Dental Screening Dental Screen Date: 04/06/24 COUNT INCLUDES [facility] Medical History Acquired hypothyroidism Hyperlipidemia Generalized anxiety disorder with panic attacks Bilateral hearing loss Varicose veins of both lower extremities Chronic osteoarthritis Tubular adenoma of colon Osteoporosis Surgical History S/P tubal ligation S/P right oophorectomy Family History Brother Bipolar 1 disorder Mental health disorder Mother Generalized anxiety disorder Sister Skin cancer of face Oral cancer Father Oral cancer Social History Housing: House Patient Tobacco Use Status: Never used Tobacco e-Cigarette/Vaping Use: Never Used service: No Current occupational status: retired Cognitive needs: No Hearing needs: No Vision needs: Yes Questionnaire Thrive Questionnaire Date Thrive assessed: 04/06/24 LYNN-7 AMB Questionnaire LYNN-7 Date LYNN - 7 assessed: 04/06/24 Source: Developed by Drs. Best Huizar, Teodora Briggs, Marques Perez and colleagues, with an educational shani from [employer]. Physical exam (Primary Care) Tobacco/Smoking Status: Tobacco use Status Tobacco use date assessed 04/06/24 04/06/24 10:29 Patient Tobacco Use Status Never used Tobacco 04/06/24 10:29 e-Cigarette/Vaping Use Never Used 04/06/24 10:29 Thrive Assessment: Date of Thrive Assessment Date Thrive assessed 04/06/24 04/06/24 11:16 Coding
[2024-04-19 08:24] VITALS: BP 112/68; PULSE 60; O2SAT 97; BMI 23.4
--- NOTE | 2024-04-19 08:32 | A.OFFVIS_ITS ---
Intake Vital Signs 04/19/24 08:24 Height 5 ft 3 in Weight 132 lb BMI 23.4 BP 112/68 Blood Pressure Location Lt brachial Position Sitting Pulse 60 Pulse Source Pulse Oximeter Pulse Oximetry (%) 97 Oxygen Delivery Method Room Air Intake Visit Reasons: AWV Intake Note: Pt is here today for her AWV Last mammogram 02/19/24, bone density scan 06/29/20, colonscopy 04/15/22 Allergies Penicillins Adverse Reaction (Verified 04/19/24 09:20) Hives Medication List - Last Reconciled 04/19/24 by Yany Santos MD acetaminophen ER 650 mg PO Q12H alprazolam 0.25 mg PO DAILY PRN aspirin (Adult Low Dose Aspirin) 81 mg PO DAILY calcium carbonate (Calcium 600) 50 mg PO DAILY cholecalciferol (vitamin D3) 50 mcg PO DAILY denosumab (Prolia) 60 mg subcut [id number] diclofenac sodium 1% 2 grams topical QID estradiol 0.01%(0.1mg/gram) 0.25 appful vaginal 3XW ezetimibe 10 mg PO DAILY fluoxetine 20 mg PO DAILY levothyroxine 100 mcg PO DAILY simvastatin 40 mg PO BEDTIME turmeric mg PO HPI AWV HPI Details SWV ? 68 year old who osteoporosis, hypothyroidism, hyperlipidemia, generalized anxiety disorder, bilateral hearing loss currently wearing hearing aids, osteoarthritis and tubular adenoma of colon, presents for her subsequent annual wellness visit. She is up-to-date with her screening mammogram done 02/19/2024 with normal findings, no longer gets Pap smears but last 1 was done in [facility] 01/03/2021 with normal results. She sees Dr. Ayala for her osteoporosis, currently on Prolia, with last bone density on record from 2019, will request copy of latest test results from his office. She had her screening colonoscopy 04/15/[address] Vaz, with tubular adenoma removed, due for recheck in 2026. She would normal fasting lipid panel done 04/13/2024 and her fasting glucose was checked in 2021 which also came back within normal limits. She has had COVID vaccines and is up-to-date with her booster, up-to-date with her pneumonia shot , gets yearly flu shot, up-to-date with her Tdap, has not yet had her shingles vaccine as she has a positive varicella antibody titer. ? Medical / Social History Reviewed? Past Medical History ?Yes . ? [place] of Care / Care Team list updated ?Yes . ? Surgical/Hospitalization History ?Yes . ? Current Medications (including OTC and supplements) ?Yes . ? Family History ?Yes . ? Tobacco Control form ?Yes . ? AUDIT-C (Alcohol use) form ?Yes . ? Illicit drug use in Social History ?Yes . ? Current diagnosis of depression? ?No ? Appropriate PHQ2/PHQ9 completed ?Yes . ? Data entered by ?[employer] Clerk and reviewed by provider ? Fall Risk ? Fall History? Have you had any falls with injury in the past year? ?No . ? Have you had two or more falls in the past year? ?No . ? Fall Risk Assessment: ?No falls in the past year . ? HRA filled out by the patient, reviewed by Provider and scanned. ?SWV ? Balance? Romberg ?Yes . ? Tandem walk ?Yes . ? Walk and Turn ?Yes . ? Rise from sit to stand ?Yes . ?Vision? Corrective lens ?Yes ? Vision screen ? Up-to-date, sees Dr. Guerra, who recently did her cataract surgery, has an upcoming appointment this week ?Hearing? Whisper test ?pass, wears hearing aids . ?Written Plan?Completed. See Patient Documents.? HPI Comments History of Present Illness Details She has been experiencing easy fatigability and malaise over the last several weeks. Currently on 88 mcg of levothyroxine daily for her hyperthyroidism. Recent thyroid levels showed elevated TSH and free T4 is within low normal range. [facility] Medical History Acquired hypothyroidism Hyperlipidemia Generalized anxiety disorder with panic attacks Bilateral hearing loss Varicose veins of both lower extremities Chronic osteoarthritis Tubular adenoma of colon Osteoporosis Surgical History S/P tubal ligation S/P right oophorectomy Family History Brother Bipolar 1 disorder Mental health disorder Mother Generalized anxiety disorder Sister Skin cancer of face Oral cancer Father Oral cancer Social History Housing: House Patient Tobacco Use Status: Never used Tobacco e-Cigarette/Vaping Use: Never Used service: No Current occupational status: retired Cognitive needs: No Hearing needs: No Vision needs: Yes Questionnaire Medicare Wellness Checkup What [age]?: [age] What gender do you identify with?: female During the past 4 weeks, how much have you been bothered by emotional problems such as feeling anxious, depressed, irritable, sad or downhearted, and blue?: moderately During the past 4 weeks, has your physical & emotional health limited your social activities with family, friends, neighbors, or groups?: not at all During the past 4 weeks, how much bodily pain have you generally had?: moderate pain During the past 4 weeks, was someone available to help you if you needed & wanted help?: yes, as much as I wanted During the past 4 weeks, what was the hardest physical activity you could do for at least 2 minutes?: moderate Can you get to places out of walking distance without help? (For eg., can you travel alone on buses, taxis or drive your car?): Yes Can you go shopping for groceries or clothes without someone's help?: Yes Can you prepare your own meals?: Yes Can you do your housework without help?: Yes Because of any health problems, do you need the help of another person with your personal care needs such as eating, bathing, dressing or getting around the house?: No Can you handle your own money without help?: Yes During the past 4 weeks, how would you rate your health in general?: very good During the past 4 weeks how have things been going for you?: pretty well Are you having difficulties driving your car?: no Do you always fasten your seat belt when you are in a car?: yes, usually During past 4 weeks, have you been bothered by the following: never: Falling or dizzy when standing up, Sexual problems?, Trouble eating well?, Teeth or denture problems? and Problems using the telephone? and sometimes: Tiredness or fatigue? Have you fallen 2 or more times in the past year?: No Are you afraid of falling?: No Are you a smoker?: no During the past 4 weeks, how many drinks of wine, beer, or other alcoholic beverages did you have?: no alcohol at all Do you exercise for about 20 minutes 3 or more times a week?: no, I usually do not exercise this much Have you been given information to help with the following?: no: Hazards in your house that might hurt you? and no: Keeping track of your medications? How often do you have trouble taking medicines the way you have been told to take them?: I always take medicine as prescribed What is your race?: White Mini Mental State Exam (MMSE) Orientation What is the (year) (season) (date) (day) (month)?: year (2023), season (Spring), date (04/19/2024), day (Friday) and month (March) Where are we (state) (county) (town or city) (hospital) (floor)?: state ([place]), county ([place]), town or city ([place]) and hospital/clinic ([facility]) Score Score: 9 Activity of Daily Living Bathing - sponge bath, tub bath or shower: receives no assistance (gets in/out by self, if usual bathing means Dressing - getting clothes from closets & drawers, including inner/outer garments & fasteners.: gets clothes & gets completely dressed without help Toileting - going to the 'toilet room' for urine/bowel elimination & cleaning self/arranging clothes: goes to toilet room, cleans self, arranges clothes without help Transfer: moves in & out of bed and chair without help (may use support object) Continence: controls urination/bowel movements completely by self Feeding: feeds self without help Total Score: 0 Information obtained from: patient Using telephone: independent Traveling: independent Shopping: independent Preparing meals: independent Housework: independent Taking medicine: independent Managing money: independent PHQ-9 Over the last 2 weeks, how often have you been bothered by any of the following problems? 1. Little interest or pleasure in doing things: not at all 2. Feeling down, depressed, or hopeless: not at all 3. Trouble falling or staying asleep, or sleeping too much: not at all 4. Feeling tired or having little energy: not at all 5. Poor appetite or overeating: not at all 6. Feeling bad about yourself - or that you are a failure or have let yourself or your family down: not at all 7. Trouble concentrating on things, such as reading the newspaper or watching television: not at all 8. Moving or speaking so slowly that other people could have noticed. Or the opposite - being so fidgety or restless that you have been moving around a lot more than usual: not at all 9. Thoughts that you would be better off or of hurting yourself in some way: not at all Total score: 0 Depression Screening Interpretation: Negative Depression Screening Done: Yes 65798 - PHQ-9 Billing: Yes Source: Developed by Drs. Best Huizar, Teodora Briggs, Marques Perez and colleagues, with an educational shani from [employer]. Review of Systems Const Reports fatigue Eyes Details: Blurry vision on left eye given after cataract surgery, has an appointment to see her eye doctor later this week ENT Reports no additional complaints Card Reports no additional complaints Resp Reports no additional complaints GI Reports no additional complaints Reports no additional complaints Musc Reports arthralgias and Reports stiffness Skin/Breast Reports dry skin Neuro Reports no additional complaints Psych Reports no additional complaints Endo Reports fatigue Ric/Lymph Reports no additional complaints Physical Exam Vital Signs: Last Vital Signs Pulse 60 04/19/24 08:24 BP 112/68 04/19/24 08:24 Pulse Ox 97 04/19/24 08:24 Oxygen Delivery Method Room Air 04/19/24 08:24 BMI result Body Mass Index 23.4 Const Other: Alert oriented x3, no acute distress noted ambulatory normal gait Orientation/consciousness: patient oriented x3 HEENT Head: Yes normocephalic Face and sinus: Yes face symmetric Mouth: Normal oral and palatal mucosa present, oropharynx normal and moist mucous membranes Eyes General: appearance normal, both eyes and all related structures Neck Other: Supple with no lymphadenopathy, thyroid gland nonpalpable Resp Auscultation: clear to auscultation bilaterally Cardio Other: S1-S2 present regular rate and rhythm GI Palpation (GI): Soft to palpation, nontender, no guarding and no masses Skin General skin exam: no rashes or lesions noted Neuro General: patient oriented x3, gait normal, tone normal, moves all extremities and no focal motor deficits Psych Appearance: grossly normal and well kempt Mental Status: mental status grossly normal Speech and movement: Normal speech and movement present Affect: normal affect Results Reviewed Results Reviewed: Name: Joselo Gonsalves Age/Sex: 68/F : 1955 Unit#: [id number] Attend Dr: Yany Santos MD Re04/13/24 Status: DEP REF Location: [facility] Disch: SPEC : [id number] MAHI: 04/13/24 STATUS: COMP REQ : [id number] RECD: 04/13/24-[address]: Yany Santos MD COMP: 04/13/241149 ENTERED: 04/13/[address] [facility] [address]: ORDERED: AST, ALT, Lipid Panel, Free T4, TSH Test Result Flag Reference AST (GOT) 29 5-31 U/L ALT (GPT) 24 0-31 U/L Triglyceride 70 <150 mg/dL Desirable Triglyceride: less than 150 mg/dL Borderline High Triglyceride 150-199 mg/dL High Triglyceride: 200-499 mg/dL Very High Triglyceride: greater than or equal to 5OO mg/dL Cholesterol 186 <200 mg/dL Desirable Cholesterol: less than 200 mg/dL Borderline High Cholesterol: 200-239 mg/dL High Cholesterol: greater than 239 mg/dL LDL Calculated 99 <100 mg/dL Desirable LDL: less than 100 mg/dL Near Optimal/Above Optimal LDL: 110-129 mg/dL Borderline High LDL: 130-159 mg/dL High LDL: 160-189 mg/dL Very High LDL: greater than or equal to 190 mg/dL HDL 73 >40 mg/dL Desirable HDL: greater than 40 mg/dL Note: This HDL assay may give artificially low results in patients with liver disease. Free T4 0.83 0.71-1.85 ng/dL TSH 3rd Gen. 9.75 H 0.32-4.0 uIU/mL Note: A sustained TSH level above 2.5 uIU/mL may warrant further investigation. TSH 3rd Generation ([facility]) Assessment & Plan Assessment & Plan (1) Encounter for subsequent annual wellness visit in Medicare patient: Code(s): Z00.00 - Encounter for general adult medical examination without abnormal findings Plan: Medical wellness visit checklist discussed with patient reviewed and updated, copy given. (2) Osteoporosis: Comment: sees Dr Ayala - on prolia Code(s): M81.0 - Age-related osteoporosis without current pathological fracture Qualifiers: Osteoporosis type: age-related Presence of current pathological fracture: without current pathological fracture Qualified Code(s): M81.0 - Age- related osteoporosis without current pathological fracture Plan: Currently on Prolia followed by rheumatology (3) Tubular adenoma of colon: Comment: sees Dr Magana Code(s): D12.6 - Benign neoplasm of colon, unspecified Plan: Up-to-date to her colonoscopy screening (4) Chronic osteoarthritis: Code(s): M19.90 - Unspecified osteoarthritis, unspecified site Plan: Takes acetaminophen ER 650 mg every 12 hours as needed (5) Bilateral hearing loss: Comment: has hearing aids from [employer] Code(s): H91.93 - Unspecified hearing loss, bilateral Qualifiers: Hearing loss type: unspecified Qualified Code(s): H91.93 - Unspecified hearing loss, bilateral Plan: Has hearing aids (6) Generalized anxiety disorder with panic attacks: Code(s): F41.1 - Generalized anxiety disorder; F41.0 - Panic disorder [episodic paroxysmal anxiety] Plan: Currently on fluoxetine 20 mg daily and alprazolam as needed for acute anxiety attacks (7) Hyperlipidemia: Code(s): E78.5 - Hyperlipidemia, unspecified Qualifiers: Hyperlipidemia type: pure hypercholesterolemia Qualified Code(s): E78.00 - Pure hypercholesterolemia, unspecified Plan: Recent lipids are within normal limits, continued on simvastatin 40 mg at bedtime and ezetimibe 10 mg daily (8) Acquired hypothyroidism: Code(s): E03.9 - Hypothyroidism, unspecified Plan: Latest TSH is elevated with a low normal free T4. Patient complaining of fatigue and mellitus. Will increase levothyroxine dose from 88 mcg to 100 mcg daily, repeat another TSH and free T4 in 4 months Orders: Orders Thyroid Stimulating Hormone 08/01/24 D12.6 - Benign neoplasm of colon, unspecified, E03.9 - Hypothyroidism, unspecified, E78.00 - Pure hypercholesterolemia, unspecified, F41.0 - Panic disorder [episodic paroxysmal anxiety], F41.1 - Generalized anxiety disorder, H91.93 - Unspecified hearing loss, bilateral, M19.90 - Unspecified osteoarthritis, unspecified site, M81.0 - Age-related osteoporosis without current pathological fracture, Z00.00 - Encounter for general adult medical examination without abnormal findings Alanine Aminotransferase 08/01/24 D12.6 - Benign neoplasm of colon, unspecified, E03.9 - Hypothyroidism, unspecified, E78.00 - Pure hyper cholesterolemia, unspecified, F41.0 - Panic disorder [episodic paroxysmal anxiety], F41.1 - Generalized anxiety disorder, H91.93 - Unspecified hearing loss, bilateral, M19.90 - Unspecified osteoarthritis, unspecified site, M81.0 - Age-related osteoporosis without current pathological fracture, Z00.00 - Encounter for general adult medical examination without abnormal findings Aspartate Amino Transferase 08/01/24 D12.6 - Benign neoplasm of colon, unspecified, E03.9 - Hypothyroidism, unspecified, E78.00 - Pure hypercholesterolemia, unspecified, F41.0 - Panic disorder [episodic paroxysmal anxiety], F41.1 - Generalized anxiety disorder, H91.93 - Unspecified hearing loss, bilateral, M19.90 - Unspecified osteoarthritis, unspecified site, M81.0 - Age-related osteoporosis without current pathological fracture, Z00.00 - Encounter for general adult medical examination without abnormal findings Free T4 (Free Thyroxine) 08/01/24 D12.6 - Benign neoplasm of colon, unspecified, E03.9 - Hypothyroidism, unspecified, E78.00 - Pure hypercholesterolemia, unspecified, F41.0 - Panic disorder [episodic paroxysmal anxiety], F41.1 - Generalized anxiety disorder, H91.93 - Unspecified hearing loss, bilateral, M19.90 - Unspecified osteoarthritis, unspecified site, M81.0 - Age-related osteoporosis without current pathological fracture, Z00.00 - Encounter for general adult medical examination without abnormal findings Lipid Panel 08/01/24 D12.6 - Benign neoplasm of colon, unspecified, E03.9 - Hypothyroidism, unspecified, E78.00 - Pure hypercholesterolemia, unspecified, F41.0 - Panic disorder [episodic paroxysmal anxiety], F41.1 - Generalized anxiety disorder, H91.93 - Unspecified hearing loss, bilateral, M19.90 - Unspeci fied osteoarthritis, unspecified site, M81.0 - Age-related osteoporosis without current pathological fracture, Z00.00 - Encounter for general adult medical examination without abnormal findings Medications: New levothyroxine 100 mcg PO DAILY 90 tabs 1RF Discontinued levothyroxine Discontinued Reason: Doctor's Order 88 mcg PO DAILY 90 tabs 1RF Quality Reporting (2019) Depression/Bipolar (159/160/161/177) PHQ-9: Total score: 0 Coding Level of Care Code Medicare Subsequent (G0439) Est Pt Level 3 (89085) Diagnoses Encounter for subsequent annual wellness visit in Medicare patient Z00.00 Age-related osteoporosis without current pathological fracture M81.0 Osteoporosis type: age-related Presence of current pathological fracture: without current pathological fracture Tubular adenoma of colon D12.6 Chronic osteoarthritis M19.90 Bilateral hearing loss, unspecified hearing loss type H91.93 Hearing loss type: unspecified Generalized anxiety disorder with panic attacks F41.1; F41.0 Pure hypercholesterolemia E78.00 Hyperlipidemia type: pure hypercholesterolemia Acquired hypothyroidism E03.9 CPT Codes Advance Care Planning - Advance Care Planning discussion: On file, no changes ([id number]) Advance Care Planning - Time spent: 1-15 minutes, on File ([id number]) Advance Care Planning Advance Care Planning discussion: On file, no changes Date of discussion: 04/19/24 Who was present: Patient Forms completed: Health Care Proxy and MOLST Time spent: 1-15 minutes, on File Actual minutes spent: 15
== END 2024-04-19 09:25 | disposition home or self-care (01) ==
PROVIDERS: Visit Provider Internal Medicine
DX: Z00.00 Encounter for general adult medical examination without abnormal findings (principal); M81.0 Age-related osteoporosis without current pathological fracture; D12.6 Benign neoplasm of colon, unspecified; M19.90 Unspecified osteoarthritis, unspecified site; H91.93 Unspecified hearing loss, bilateral; F41.1 Generalized anxiety disorder; F41.0 Panic disorder [episodic paroxysmal anxiety]; E78.00 Pure hypercholesterolemia, unspecified; E03.9 Hypothyroidism, unspecified
CPT/HCPCS: 1123F; 99213; G0439

== ENCOUNTER 2024-09-10 08:55 | Outpatient (REF) | payer MEDICARE, SELFPAY ==
[2024-09-10 11:15] LABS: Alanine Aminotransferase 24 U/L (0-31); Aspartate Amino Transferase 27 U/L (5-31); Cholesterol 166 mg/dL (<200); HDL Cholesterol 62 mg/dL (>40); LDL Cholesterol Calculated 89 mg/dL (<100); Triglycerides 75 mg/dL (<150)
[2024-09-10 11:21] LABS: Free T4 (Free Thyroxine) 1.34 ng/dL (0.71-1.85); Thyroid Stimulating Hormone 0.01 uIU/mL (0.32-4.0)
== END 2024-09-10 08:56 | disposition home or self-care (01) ==
LOC: HO.HMGCLDS 08:55
PROVIDERS: PCP Internal Medicine; Visit Provider Internal Medicine
DX: Z00.00 Encounter for general adult medical examination without abnormal findings (principal); E03.9 Hypothyroidism, unspecified; E78.00 Pure hypercholesterolemia, unspecified; D12.6 Benign neoplasm of colon, unspecified; M19.90 Unspecified osteoarthritis, unspecified site; H91.93 Unspecified hearing loss, bilateral; F41.1 Generalized anxiety disorder; F41.0 Panic disorder [episodic paroxysmal anxiety]; M81.0 Age-related osteoporosis without current pathological fracture
CPT/HCPCS: 36415; 80061; 84439; 84443; 84450; 84460

== ENCOUNTER 2024-09-20 09:06 | Outpatient (AMB) | payer MEDICARE, SELFPAY ==
--- NOTE | 2024-09-20 09:26 | MHC.PC.OV ---
Vital Signs 09/20/24 09:27 Height 5 ft 3 in Weight 129 lb BMI 22.8 BP 110/72 Blood Pressure Location Lt brachial Position Sitting Pulse 55 Pulse Source Pulse Oximeter Pulse Oximetry (%) 97 Oxygen Delivery Method Room Air Intake Visit Reasons: F/U Anxiety/Meds Intake Note: Pt is here today f/u anxiety med Allergies Penicillins Adverse Reaction (Verified 09/20/24 09:55) Hives Medication List - Last Reconciled 09/26/24 by Yany Santos MD acetaminophen ER 650 mg PO Q12H alprazolam 0.25 mg PO DAILY PRN aspirin (Adult Low Dose Aspirin) 81 mg PO DAILY azithromycin For 250 mg dose pack: take 500 mg today (day 1), then 250 mg for 4 days (days 2-5) PO calcium carbonate (Calcium 600) 50 mg PO DAILY cholecalciferol (vitamin D3) 50 mcg PO DAILY denosumab (Prolia) 60 mg subcut [id number] diclofenac sodium 1% 2 grams topical QID estradiol 0.01%(0.1mg/gram) 0.25 appful vaginal 3XW ezetimibe 10 mg PO DAILY fluoxetine 20 mg PO DAILY levothyroxine 100 mcg PO DAILY simvastatin 40 mg PO BEDTIME turmeric mg PO Tobacco use date assessed: 09/20/24 Fall risk assessment: No Falls in past year Last assessed Fall Risk: 09/20/24 Dental Screening Dental Screen Date: 09/20/24 Did you have a dental visit in the last 12 months?: Yes Did you have a dental problem in the last 6 months where you did not have access to dental care?: No Was dental information given to patient?: Patient has dentist HPI F/U Anxiety/Meds HPI Details 68-year-old lady with generalized anxiety disorder, hyperlipidemia hypothyroidism, here today for follow-up. She has been feeling well on present medications for anxiety with namely fluoxetine and alprazolam taken as needed. Had recent fasting labs done which showed normal liver enzymes, lipid levels and thyroid levels. Complaining of one-week history now of nasal congestion, with postnasal drainage and pain over right cheek, accompanied by headaches. Has tried [id number] allergy medicine cold medications which has not afforded much relief. Denies any accompanying sore throat or fever [facility] Medical History Acquired hypothyroidism Hyperlipidemia Generalized anxiety disorder with panic attacks Bilateral hearing loss Varicose veins of both lower extremities Chronic osteoarthritis Tubular adenoma of colon Osteoporosis Surgical History S/P tubal ligation S/P right oophorectomy Family History Brother Bipolar 1 disorder Mental health disorder Mother Generalized anxiety disorder Sister Skin cancer of face Oral cancer Father Oral cancer Social History Housing: House Patient Tobacco Use Status: Never used Tobacco e-Cigarette/Vaping Use: Never Used service: No Current occupational status: retired Cognitive needs: No Hearing needs: No Vision needs: Yes Questionnaire PHQ-9 Over the last 2 weeks, how often have you been bothered by any of the following problems? 1. Little interest or pleasure in doing things: not at all 2. Feeling down, depressed, or hopeless: not at all 3. Trouble falling or staying asleep, or sleeping too much: not at all 4. Feeling tired or having little energy: not at all 5. Poor appetite or overeating: not at all 6. Feeling bad about yourself - or that you are a failure or have let yourself or your family down: not at all 7. Trouble concentrating on things, such as reading the newspaper or watching television: not at all 8. Moving or speaking so slowly that other people could have noticed. Or the opposite - being so fidgety or restless that you have been moving around a lot more than usual: not at all 9. Thoughts that you would be better off or of hurting yourself in some way: not at all Total score: 0 Depression Screening Interpretation: Negative Depression Screening Done: Yes 82171 - PHQ-9 Billing: Yes Source: Developed by Drs. Best Huizar, Teodora Briggs, Marques Perez and colleagues, with an educational shani from [employer]. Thrive Questionnaire Date Thrive assessed: 09/20/24 I am a: Patient What is your living situation today?: I have a steady place to live Within the past 12 months, did the food you bought not last and you didn't have the money to get more?: Never true Within the past 12 months, did you worry whether your food would run out before you got money to buy more?: Never true Do you have trouble paying for medicines?: No Do you have trouble getting transportation to medical appointments?: No Do you have trouble paying your heating and electricity bill?: No Do you have trouble taking care of your child, family member or friend?: No Do you have trouble with day-to-day activities such as bathing, preparing meals, shopping, managing finances, etc.?: No Are you currently unemployed and looking for a job?: No Are you interested in more education?: No Please select the resources that you would like help with: None Currently or been in a relationship where the following occur: No concerns reported THRIVE Score: 0 AUDIT C Alcohol Use Questionnaire (AUDIT-C) 1. How often do you have a drink containing alcohol?: Never Total Score: 0 LYNN-7 AMB Questionnaire LYNN-7 Date LYNN - 7 assessed: 09/20/24 Feeling nervous, anxious, or on edge: 0 = Not at all Not being able to stop or control worryin = Not at all Worrying too much about different things: 0 = Not at all Trouble relaxin = Not at all Being so restless that it is hard to sit still: 0 = Not at all Becoming easily annoyed or irritable: 0 = Not at all Feeling afraid as if something awful might happen: 0 = Not at all Total LYNN-7 score (0-4 normal; 5-9 mild; 10-14 moderate; 15-21 severe): 0 Source: Developed by Drs. Best Huizar, Teodora Briggs, Marques Perez and colleagues, with an educational shani from [employer]. LYNN-7 Assessment Billing LYNN-7 Assessment Tool: LYNN-7 Assessment 27467 Review of Systems Card Reports no additional complaints Resp Reports no additional complaints GI Reports no additional complaints Reports no additional complaints Musc Reports arthralgias and Reports stiffness Skin/Breast Reports dry skin Neuro Reports no additional complaints Psych Reports no additional complaints Endo Reports no additional complaints Ric/Lymph Reports no additional complaints Aller/Immun Reports as per HPI Physical exam (Primary Care) Vital Signs: Last Vital Signs Pulse 55 09/20/24 09:27 BP 110/72 09/20/24 09:27 Pulse Ox 97 09/20/24 09:27 Oxygen Delivery Method Room Air 09/20/24 09:27 BMI result Body Mass Index 22.8 Tobacco/Smoking Status: Tobacco use Status Tobacco use date assessed 09/20/24 09/20/24 09:30 Patient Tobacco Use Status Never used Tobacco 09/20/24 09:30 e-Cigarette/Vaping Use Never Used 09/20/24 09:30 PHQ-9: PHQ-9 Score PHQ-9: Total score 0 09/20/24 09:58 Depression Screening Interpretation: Negative Thrive Assessment: Date of Thrive Assessment Date Thrive assessed 09/20/24 09/20/24 09:30 Currently or been in a relationship where the following occur: No concerns reported Const General: comfortable and no acute distress Orientation/consciousness: patient oriented x3 HENMT Head: Yes normocephalic General nose exam: Normal external nose present Face and sinus: Yes face symmetric and Yes sinus tenderness (Right maxillary area) Mouth: Normal oral and palatal mucosa present and moist mucous membranes Eyes General: appearance normal, both eyes and all related structures Neck Neck: Yes full ROM, Yes no lymphadenopathy and Yes supple Thyroid: Thyroid normal (Nonpalpable) Resp Effort & Inspection: normal respiratory effort and able to speak in complete sentences Auscultation: clear to auscultation bilaterally Cardio Rate: regular rate Rhythm: regular rhythm Heart sounds: S1 normal heart sound present and S2 normal heart sound present GI Palpation (GI): Soft to palpation, nontender, no guarding and no masses Auscultation: normal bowel sounds Neuro General: patient oriented x3, gait normal, tone normal, no focal motor deficits and CN's II-XI intact bilaterally Extrem General: Yes full ROM, Yes no joint enlargement, Yes no pedal edema and Yes normal gait Psych Appearance: grossly normal Mental Status: mental status grossly normal Speech and movement: Normal speech and movement present Affect: normal affect Attitude: cooperative Thought process: Normal thought process present Results Reviewed Results Reviewed: Name: Joselo Gonsalves Age/Sex: 68/F : 1955 Unit#: [id number] Attend Dr: Yany Santos MD Re09/10/24 Status: DEP REF Location: [facility] Disch: SPEC : [id number] MAHI: 09/10/24 STATUS: COMP REQ : [id number] RECD: 09/10/[address]: Yany Santos MD COMP: 09/10/24 ENTERED: 09/10/[address]: ORDERED: AST, ALT, Lipid Panel, Free T4, TSH Test Result Flag Reference AST (GOT) 27 5-31 U/L ALT (GPT) 24 0-31 U/L Triglyceride 75 <150 mg/dL Desirable Triglyceride: less than 150 mg/dL Borderline High Triglyceride 150-199 mg/dL High Triglyceride: 200-499 mg/dL Very High Triglyceride: greater than or equal to 5OO mg/dL Cholesterol 166 <200 mg/dL Desirable Cholesterol: less than 200 mg/dL Borderline High Cholesterol: 200-239 mg/dL High Cholesterol: greater than 239 mg/dL LDL Calculated 89 <100 mg/dL Desirable LDL: less than 100 mg/dL Near Optimal/Above Optimal LDL: 110-129 mg/dL Borderline High LDL: 130-159 mg/dL High LDL: 160-189 mg/dL Very High LDL: greater than or equal to 190 mg/dL HDL 62 >40 mg/dL Desirable HDL: greater than 40 mg/dL Note: This HDL assay may give artificially low results in patients with liver disease. Free T4 1.34 0.71-1.85 ng/dL TSH 3rd Gen. 0.01 L 0.32-4.0 uIU/mL TSH 3rd Generation ([facility]) Coding Level of Care Code Est Pt Level 4 (02925) Complex EM visit Add On G2211 Diagnoses Generalized anxiety disorder with panic attacks F41.1; F41.0 Pure hypercholesterolemia E78.00 Hyperlipidemia type: pure hypercholesterolemia Acquired hypothyroidism E03.9 Acute non-recurrent maxillary sinusitis J01.00 Sinusitis location: maxillary Recurrence: non-recurrent Additional Codes LYNN-7 Assessment Billing - LYNN-7 Assessment Tool: LYNN-7 Assessment 63080 ([id number]) Assessment & Plan Assessment & Plan (1) Generalized anxiety disorder with panic attacks: Code(s): F41.1 - Generalized anxiety disorder; F41.0 - Panic disorder [episodic paroxysmal anxiety] Category: Medical Plan: Continued on alprazolam and fluoxetine at the same dose. (2) Hyperlipidemia: Code(s): E78.5 - Hyperlipidemia, unspecified Category: Medical Qualifiers: Hyperlipidemia type: pure hypercholesterolemia Qualified Code(s): E78.00 - Pure hypercholesterolemia, unspecified Plan: Reviewed recent fasting lipid profile with patient with levels normal limits . Continue ezetimibe 10 mg daily and simvastatin 40 mg at bedtime , in addition to adherence to low-cholesterol diet and regular exercise, at least 30 minutes 3 to 4 times a week. Advised patient to make healthy food choices, eat more fruits, vegetables, whole grains, wild caught fish and low-fat dairy. Limit amount of meat and fried or fatty food products, as well as processed foods and fast foods. Follow-up scheduled with repeat fasting lipid panel in 4 months. (3) Acquired hypothyroidism: Code(s): E03.9 - Hypothyroidism, unspecified Category: Medical Plan: Thyroid levels are with within normal limits, continued on current dose of levothyroxine mcg daily (4) Acute sinusitis: Code(s): J01.90 - Acute sinusitis, unspecified Qualifiers: Sinusitis location: maxillary Recurrence: non-recurrent Qualified Code(s): J01.00 - Acute maxillary sinusitis, unspecified Plan: Prescription sent for azithromycin Dosepak to take as directed Orders: Orders Thyroid Stimulating Hormone 01/01/25 E03.9 - Hypothyroidism, unspecified, E78.00 - Pure hypercholesterolemia, unspecified, J01.90 - Acute sinusitis, unspecified Free T4 (Free Thyroxine) 01/01/25 E03.9 - Hypothyroidism, unspecified, E78.00 - Pure hypercholesterolemia, unspecified, J01.90 - Acute sinusitis, unspecified Alanine Aminotransferase 01/01/25 E03.9 - Hypothyroidism, unspecified, E78.00 - Pure hypercholesterolemia, unspecified, J01.90 - Acute sinusitis, unspecified Lipid Panel 01/01/25 E03.9 - Hypothyroidism, unspecified, E78.00 - Pure hypercholesterolemia, unspecified, J01.90 - Acute sinusitis, unspecified Aspartate Amino Transferase 01/01/25 E03.9 - Hypothyroidism, unspecified, E78.00 - Pure hypercholesterolemia, unspecified, J01.90 - Acute sinusitis, unspecified Medications: New azithromycin For 250 mg dose pack: take 500 mg today (day 1), then 250 mg for 4 days (days 2-5) PO 6 tabs 0RF Refilled alprazolam 0.25 mg PO DAILY PRN 90 tabs 0RF acute anxiety attack
[2024-09-20 09:27] VITALS: BP 110/72; PULSE 55; O2SAT 97; BMI 22.8
== END 2024-09-20 10:56 | disposition home or self-care (01) ==
PROVIDERS: PCP Internal Medicine; Visit Provider Internal Medicine
DX: F41.1 Generalized anxiety disorder (principal); F41.0 Panic disorder [episodic paroxysmal anxiety]; E78.00 Pure hypercholesterolemia, unspecified; E03.9 Hypothyroidism, unspecified; J01.00 Acute maxillary sinusitis, unspecified

== ENCOUNTER → 2024-09-20 09:06 | Outpatient (BNVA) | payer MEDICARE, SELFPAY | PROVIDERS: PCP Internal Medicine; Visit Provider Internal Medicine | DX: F41.1 Generalized anxiety disorder (principal); F41.0 Panic disorder [episodic paroxysmal anxiety]; E78.00 Pure hypercholesterolemia, unspecified; E03.9 Hypothyroidism, unspecified; J01.00 Acute maxillary sinusitis, unspecified; Z79.899 Other long term (current) drug therapy | CPT/HCPCS: 96127; 99212 ==

== ENCOUNTER 2025-03-02 08:27 | Outpatient (REF) | payer MEDICARE, SELFPAY ==
[2025-03-02 11:30] LABS: Alanine Aminotransferase 19 U/L (0-31); Aspartate Amino Transferase 29 U/L (5-31); Cholesterol 168 mg/dL (<200); HDL Cholesterol 61 mg/dL (>40); LDL Cholesterol Calculated 92 mg/dL (<100); Triglycerides 79 mg/dL (<150)
[2025-03-02 11:41] LABS: Free T4 (Free Thyroxine) 1.14 ng/dL (0.71-1.85); Thyroid Stimulating Hormone 0.35 uIU/mL (0.32-4.0)
== END 2025-03-02 08:28 | disposition home or self-care (01) ==
LOC: HO.HMGCLDS 08:27
PROVIDERS: PCP Internal Medicine; Visit Provider Internal Medicine
DX: E03.9 Hypothyroidism, unspecified (principal); E78.00 Pure hypercholesterolemia, unspecified; J01.90 Acute sinusitis, unspecified
CPT/HCPCS: 36415; 80061; 84439; 84443; 84450; 84460

== ENCOUNTER 2025-03-10 07:44 | Outpatient (AMB) | payer MEDICARE, SELFPAY ==
[2025-03-10 08:00] VITALS: BP 122/72; PULSE 65; RESP 16; TEMP 36.4; O2SAT 98; BMI 23.0
--- NOTE | 2025-03-10 08:00 | A.OFFPC_ITS ---
Vital Signs 03/10/25 08:00 Height 5 ft 3 in Weight 130 lb BMI 23.0 BP 122/72 Blood Pressure Location Rt brachial Position Sitting Respiration 16 Pulse 65 Pulse Source Pulse Oximeter Temp 97.6 F Temp Source Oral Pulse Oximetry (%) 98 Oxygen Delivery Method Room Air Intake Visit Reasons: 4m follow up Intake Note: Pt is here today for her 4mo. f/u Allergies Penicillins Adverse Reaction (Verified 03/10/25 08:18) Hives Medication List - Last Reconciled 03/10/25 by Yany Santos MD acetaminophen ER 650 mg PO Q12H alprazolam 0.25 mg PO DAILY PRN aspirin (Adult Low Dose Aspirin) 81 mg PO DAILY calcium carbonate (Calcium 600) 50 mg PO DAILY cholecalciferol (vitamin D3) 50 mcg PO DAILY denosumab (Prolia) 60 mg subcut [id number] diclofenac sodium 1% 2 grams topical QID estradiol 0.01%(0.1mg/gram) 0.25 appful vaginal 3XW ezetimibe 10 mg PO DAILY fluoxetine 20 mg PO DAILY levothyroxine 100 mcg PO DAILY simvastatin 40 mg PO BEDTIME turmeric mg PO Tobacco use date assessed: 03/10/25 Fall risk assessment: 1 Fall in past year Last assessed Fall Risk: 03/10/25 Dental Screening Dental Screen Date: 03/10/25 Did you have a dental visit in the last 12 months?: No Did you have a dental problem in the last 6 months where you did not have access to dental care?: No Was dental information given to patient?: Patient has dentist HPI 4m follow up HPI Details Old lady with history of dyslipidemia, and hypothyroidism, here today for her follow-up. She has been taking ezetimibe and simvastatin, with recent fasting lipids within normal limits. Her thyroid levels are also within normal limits, currently taking levothyroxine at 100 mcg daily in a.m.. Has been feeling well with no complaints at present time. She has generalized anxiety currently stable and controlled on fluoxetine 20 mg daily and only takes alprazolam as needed for rare episodes of anxiety. Currently being seen by [facility] for left ankle fracture, after slipping on the ice earlier this year. Now feeling better, takes Tylenol alternating with ibuprofen which has been helping. She has osteoporosis, currently on Prolia followed by Dr. Ayala. [facility] Medical History (Updated 03/10/25 @ 08:40 by Yany Santos MD) Acquired hypothyroidism Hyperlipidemia Generalized anxiety disorder with panic attacks Bilateral hearing loss Varicose veins of both lower extremities Chronic osteoarthritis Tubular adenoma of colon Osteoporosis Surgical History S/P tubal ligation S/P right oophorectomy Family History Brother Bipolar 1 disorder Mental health disorder Mother Generalized anxiety disorder Sister Skin cancer of face Oral cancer Father Oral cancer Social History Housing: House Patient Tobacco Use Status: Never used Tobacco e-Cigarette/Vaping Use: Never Used service: No Current occupational status: retired Cognitive needs: No Hearing needs: No Vision needs: Yes Questionnaire PHQ-9 Over the last 2 weeks, how often have you been bothered by any of the following problems? 1. Little interest or pleasure in doing things: not at all 2. Feeling down, depressed, or hopeless: not at all 3. Trouble falling or staying asleep, or sleeping too much: not at all 4. Feeling tired or having little energy: not at all 5. Poor appetite or overeating: not at all 6. Feeling bad about yourself - or that you are a failure or have let yourself or your family down: not at all 7. Trouble concentrating on things, such as reading the newspaper or watching television: not at all 8. Moving or speaking so slowly that other people could have noticed. Or the opposite - being so fidgety or restless that you have been moving around a lot more than usual: not at all 9. Thoughts that you would be better off or of hurting yourself in some way: not at all Total score: 0 Depression Screening Interpretation: Negative Depression Screening Done: Yes 34789 - PHQ-9 Billing: Yes Source: Developed by Drs. Best Huizar, Teodora Briggs, Marques Perez and colleagues, with an educational shani from [employer]. Thrive Questionnaire Date Thrive assessed: 03/10/25 I am a: Patient What is your living situation today?: I have a steady place to live Within the past 12 months, did the food you bought not last and you didn't have the money to get more?: Never true Within the past 12 months, did you worry whether your food would run out before you got money to buy more?: Never true Do you have trouble paying for medicines?: No Do you have trouble getting transportation to medical appointments?: No Do you have trouble paying your heating and electricity bill?: No Do you have trouble taking care of your child, family member or friend?: No Do you have trouble with day-to-day activities such as bathing, preparing meals, shopping, managing finances, etc.?: No Are you currently unemployed and looking for a job?: No Are you interested in more education?: No Please select the resources that you would like help with: None Currently or been in a relationship where the following occur: No concerns reported and I choose not to answer THRIVE Score: 0 AUDIT C Alcohol Use Questionnaire (AUDIT-C) 1. How often do you have a drink containing alcohol?: Never 2. How many drinks containing alcohol do you have on a typical day when you are drinking?: 1 or 2 3. How often do you have six or more drinks on one occasion?: Never Total Score: 0 LYNN-7 AMB Questionnaire LYNN-7 Date LYNN - 7 assessed: 03/10/25 Feeling nervous, anxious, or on edge: 1 = Several days Not being able to stop or control worryin = Not at all Worrying too much about different things: 0 = Not at all Trouble relaxin = More than half the days Being so restless that it is hard to sit still: 0 = Not at all Becoming easily annoyed or irritable: 0 = Not at all Feeling afraid as if something awful might happen: 0 = Not at all Total LYNN-7 score (0-4 normal; 5-9 mild; 10-14 moderate; 15-21 severe): 3 Source: Developed by Drs. Best Huizar, Teodora Briggs, Marques Perez and colleagues, with an educational shani from [employer] LYNN-7 Assessment Billing LYNN-7 Assessment Tool: LYNN-7 Assessment 82057 Review of Systems Const Denies fatigue, Denies fever(s), Denies headache(s) and Denies malaise Eyes Denies change in vision and Reports requires corrective lenses ENT Denies headache(s) Card Reports no additional complaints Resp Reports no additional complaints GI Reports no additional complaints Reports no additional complaints Musc Reports arthralgias and Reports stiffness Skin/Breast Reports dry skin Neuro Reports no additional complaints and Denies headache(s) Psych Reports no additional complaints Endo Reports no additional complaints and Denies fatigue Ric/Lymph Reports no additional complaints Aller/Immun Reports as per HPI Physical exam (Primary Care) Vital Signs: Last Vital Signs Temp 97.6 F 03/10/25 08:00 Pulse 65 03/10/25 08:00 Resp 16 03/10/25 08:00 BP 122/72 03/10/25 08:00 Pulse Ox 98 03/10/25 08:00 Oxygen Delivery Method Room Air 03/10/25 08:00 BMI result Body Mass Index 23.0 Tobacco/Smoking Status: Tobacco use Status Tobacco use date assessed 03/10/25 03/10/25 08:13 Patient Tobacco Use Status Never used Tobacco 03/10/25 08:02 e-Cigarette/Vaping Use Never Used 03/10/25 08:02 PHQ-9: PHQ-9 Score PHQ-9: Total score 0 03/10/25 08:02 Depression Screening Interpretation: Negative Thrive Assessment: Date of Thrive Assessment Date Thrive assessed 09/20/24 03/10/25 08:02 Currently or been in a relationship where the following occur: No concerns reported and I choose not to answer Const General: no acute distress Orientation/consciousness: patient oriented x3 HENMT Head: Yes normocephalic General nose exam: Normal external nose present Face and sinus: Yes face symmetric and Yes sinus tenderness (Right maxillary area) Mouth: Normal oral and palatal mucosa present and moist mucous membranes Eyes General: appearance normal, both eyes and all related structures Neck Neck: Yes full ROM, Yes no lymphadenopathy and Yes supple Thyroid: Thyroid normal (Nonpalpable) Resp Effort & Inspection: normal respiratory effort and able to speak in complete sentences Auscultation: clear to auscultation bilaterally Cardio Rate: regular rate Rhythm: regular rhythm Heart sounds: S1 normal heart sound present and S2 normal heart sound present GI Palpation (GI): Soft to palpation, nontender, no guarding and no masses Auscultation: normal bowel sounds Neuro General: patient oriented x3, gait normal, tone normal, no focal motor deficits and CN's II-XI intact bilaterally Extrem General: Yes full ROM, Yes no joint enlargement, Yes no pedal edema and Yes normal gait Psych Appearance: grossly normal Mental Status: mental status grossly normal Speech and movement: Normal speech and movement present Affect: normal affect Attitude: cooperative Thought process: Normal thought process present Results Reviewed Results Reviewed: Name: Joselo Gonsalves Age/Sex: 69/F : 1955 Unit#: [id number] Attend Dr: Yany Santos MD Re03/02/25 Status: DEP REF Location: [facility] Disch: SPEC : [id number] MAHI: 03/02/25 STATUS: COMP REQ : [id number] RECD: 03/02/[address]: Yany Santos MD COMP: 03/02/25 ENTERED: 03/02/[address]: ORDERED: AST, ALT, Lipid Panel, Free T4, TSH Test Result Flag Reference AST (GOT) 29 5-31 U/L ALT (GPT) 19 0-31 U/L Triglyceride 79 <150 mg/dL Desirable Triglyceride: less than 150 mg/dL Borderline High Triglyceride 150-199 mg/dL High Triglyceride: 200-499 mg/dL Very High Triglyceride: greater than or equal to 5OO mg/dL Cholesterol 168 <200 mg/dL Desirable Cholesterol: less than 200 mg/dL Borderline High Cholesterol: 200-239 mg/dL High Cholesterol: greater than 239 mg/dL LDL Calculated 92 <100 mg/dL Desirable LDL: less than 100 mg/dL Near Optimal/Above Optimal LDL: 110-129 mg/dL Borderline High LDL: 130-159 mg/dL High LDL: 160-189 mg/dL Very High LDL: greater than or equal to 190 mg/dL HDL 61 >40 mg/dL Desirable HDL: greater than 40 mg/dL Note: This HDL assay may give artificially low results in patients with liver disease. Free T4 1.14 0.71-1.85 ng/dL TSH 3rd Gen. 0.35 0.32-4.0 uIU/mL TSH 3rd Generation ([facility]) Coding Level of Care Code Est Pt Level 4 (66290) Complex EM visit Add On G2211 Diagnoses Generalized anxiety disorder with panic attacks F41.1; F41.0 Pure hypercholesterolemia E78.00 Hyperlipidemia type: pure hypercholesterolemia Acquired hypothyroidism E03.9 Additional Codes PHQ-9 - 41903 - PHQ-9 Billing: Yes ([id number]) LYNN-7 Assessment Billing - LYNN-7 Assessment Tool: LYNN-7 Assessment 87603 ([id number]) Assessment & Plan Assessment & Plan (1) Generalized anxiety disorder with panic attacks: Code(s): F41.1 - Generalized anxiety disorder; F41.0 - Panic disorder [episodic paroxysmal anxiety] Category: Medical Plan: Continued on fluoxetine 20 mg daily, and alprazolam, to be taken as needed for acute anxiety attack (2) Hyperlipidemia: Code(s): E78.5 - Hyperlipidemia, unspecified Category: Medical Qualifiers: Hyperlipidemia type: pure hypercholesterolemia Qualified Code(s): E78.00 - Pure hypercholesterolemia, unspecified Plan: Fasting lipids are within normal limits, continued on ezetimibe and simvastatin at the same dose recheck another fasting lipid panel in August 2025 prior to her next appointment (3) Acquired hypothyroidism: Code(s): E03.9 - Hypothyroidism, unspecified Category: Medical Plan: Latest thyroid levels are within normal limits, continued on current dose of levothyroxine 100 mcg Orders: Orders Alanine Aminotransferase 08/01/25 E03.9 - Hypothyroidism, unspecified, E78.00 - Pure hypercholesterolemia, unspecified, F41.0 - Panic disorder [episodic paroxysmal anxiety], F41.1 - Generalized anxiety disorder Aspartate Amino Transferase 08/01/25 E03.9 - Hypothyroidism, unspecified, E78.00 - Pure hypercholesterolemia, unspecified, F41.0 - Panic disorder [episodic paroxysmal anxiety], F41.1 - Generalized anxiety disorder Basic Metabolic Panel Fasting 08/01/25 E03.9 - Hypothyroidism, unspecified, E78.00 - Pure hypercholesterolemia, unspecified, F41.0 - Panic disorder [episodic paroxysmal anxiety], F41.1 - Generalized anxiety disorder Thyroid Stimulating Hormone 08/01/25 E03.9 - Hypothyroidism, unspecified, E78.00 - Pure hypercholesterolemia, unspecified, F41.0 - Panic disorder [episodic paroxysmal anxiety], F41.1 - Generalized anxiety disorder Free T4 (Free Thyroxine) 08/01/25 E03.9 - Hypothyroidism, unspecified, E78.00 - Pure hypercholesterolemia, unspecified, F41.0 - Panic disorder [episodic paroxysmal anxiety], F41.1 - Generalized anxiety disorder Lipid Panel 08/01/25 E03.9 - Hypothyroidism, unspecified, E78.00 - Pure hypercholesterolemia, unspecified, F41.0 - Panic disorder [episodic paroxysmal anxiety], F41.1 - Generalized anxiety disorder Medications: Refilled ezetimibe 10 mg PO DAILY 90 tabs 4RF levothyroxine 100 mcg PO DAILY 90 tabs 4RF fluoxetine 20 mg PO DAILY 90 caps 4RF simvastatin 40 mg PO BEDTIME 90 tabs 4RF
== END 2025-03-10 08:39 | disposition home or self-care (01) ==
LOC: HO.HMCC 07:45
PROVIDERS: PCP Internal Medicine; Visit Provider Internal Medicine
DX: F41.1 Generalized anxiety disorder (principal); F41.0 Panic disorder [episodic paroxysmal anxiety]; E78.00 Pure hypercholesterolemia, unspecified; E03.9 Hypothyroidism, unspecified

== ENCOUNTER → 2025-03-10 07:44 | Outpatient (BNVA) | payer MEDICARE, SELFPAY | PROVIDERS: PCP Internal Medicine; Visit Provider Internal Medicine | DX: E78.5 Hyperlipidemia, unspecified (principal); E03.9 Hypothyroidism, unspecified; F41.9 Anxiety disorder, unspecified; F41.1 Generalized anxiety disorder; F41.0 Panic disorder [episodic paroxysmal anxiety]; E78.00 Pure hypercholesterolemia, unspecified; Z87.81 Personal history of (healed) traumatic fracture; Z79.899 Other long term (current) drug therapy | CPT/HCPCS: 96127; 99212 ==

== ENCOUNTER 2025-08-04 08:54 | Outpatient (REF) | payer MEDICARE, SELFPAY ==
--- OUTSIDE RECORDS SUMMARY | 2025-08-04 09:26 | XMS_ITS | Patient Health Record ---
Author Organization [facility] Address [address] [place] [id number] Care Team Providers Care Administrative Support Assistant Name Role Phone Best Rankin [phone] Reason For Referral No Information Plan Of Treatment No Information
[2025-08-04 11:18] LABS: Alanine Aminotransferase 21 U/L (0-31); Anion Gap 13 (12-20); Aspartate Amino Transferase 31 U/L (5-31); Blood Urea Nitrogen 17 mg/dL (9-16); Calcium 9.2 mg/dL (8.4-10.2); Carbon Dioxide 27 mmol/L (22-29); Chloride 107 mmol/L (96-108); Cholesterol 181 mg/dL (<200); Estimated Glomerular Filt Rate > 60; HDL Cholesterol 61 mg/dL (>40); Potassium 4.3 mmol/L (3.3-5.1); Sodium 143 mmol/L (135-145); Triglycerides 75 mg/dL (<150)
[2025-08-04 11:24] LABS: Free T4 (Free Thyroxine) 0.69 ng/dL (0.71-1.85); Thyroid Stimulating Hormone 8.61 uIU/mL (0.32-4.0)
== END 2025-08-04 08:55 | disposition home or self-care (01) ==
LOC: HO.HMGCLDS 08:54
PROVIDERS: PCP Internal Medicine; Visit Provider Internal Medicine
DX: F41.1 Generalized anxiety disorder (principal); F41.0 Panic disorder [episodic paroxysmal anxiety]; E03.9 Hypothyroidism, unspecified; E78.00 Pure hypercholesterolemia, unspecified
CPT/HCPCS: 36415; 80048; 80061; 84439; 84443; 84450; 84460

== ENCOUNTER 2025-08-08 09:02 | Outpatient (AMB) | payer MEDICARE, SELFPAY ==
[2025-08-08 09:33] VITALS: BP 108/64; PULSE 64; RESP 16; TEMP 36.7; O2SAT 97; BMI 22.5
--- NOTE | 2025-08-08 09:33 | A.OFFVIS_ITS ---
Intake Vital Signs 08/08/25 09:33 Height 5 ft 3 in Weight 127 lb BMI 22.5 BP 108/64 Blood Pressure Location Rt brachial Position Sitting Respiration 16 Pulse 64 Pulse Source Pulse Oximeter Temp 98.0 F Temp Source Oral Pulse Oximetry (%) 97 Oxygen Delivery Method Room Air Intake Visit Reasons: SWV G0439 Intake Note: Pt is here today for her SWV: Last mammogram 05/25/25, bone density scan 06/29/20, colonoscopy 04/15/22 Allergies Penicillins Adverse Reaction (Verified 08/08/25 09:57) Hives Medication List - Last Reconciled 08/08/25 by Yany Santos MD acetaminophen ER 650 mg PO Q12H alprazolam 0.25 mg PO DAILY PRN aspirin (Adult Low Dose Aspirin) 81 mg PO DAILY calcium carbonate (Calcium 600) 50 mg PO DAILY cholecalciferol (vitamin D3) 50 mcg PO DAILY denosumab (Prolia) 60 mg subcut [id number] estradiol 0.01%(0.1mg/gram) 0.25 appful vaginal 3XW ezetimibe 10 mg PO DAILY fluoxetine 20 mg PO DAILY levothyroxine 100 mcg PO DAILY simvastatin 40 mg PO BEDTIME HPI SWV G0439 HPI Details SWV ? 69 year old who osteoporosis, hypothyroidism, hyperlipidemia, generalized anxiety disorder, bilateral hearing loss currently wearing hearing aids, osteoarthritis and tubular adenoma of colon, presents for her subsequent annual wellness visit. She is up-to-date with her screening mammogram done 6 04/19/2025 which showed presence of a lesion on right breast, with repeat mammogram and ultrasound guided biopsy showed presence of fibroadenoma, and scheduled for follow-up right breast ultrasound in six-months. She no longer gets Pap smears , with last one done in [facility] 01/03/2021 showing normal results. She sees Dr. Ayala for her osteoporosis, currently on Prolia, with last bone density on record from 2019, will request copy of latest dexa scan results from his office. She had her screening colonoscopy 04/15/[address] Magana, with tubular adenoma removed, due for recheck in 2026. She would normal fasting lipid panel done 04/13/2024 and her fasting glucose was checked in 2021 which also came back within normal limits. She has had COVID vaccines and is up-to-date with her booster, up-to-date with her pneumonia shot , gets yearly flu shot, up-to-date with her Tdap, has not yet had her shingles vaccine as she has a positive varicella antibody titer. ? Medical / Social History Reviewed? Past Medical History ?Yes . ? [place] of Care / Care Team list updated ?Yes . ? Surgical/Hospitalization History ?Yes . ? Current Medications (including OTC and supplements) ?Yes . ? Family History ?Yes . ? Tobacco Control form ?Yes . ? AUDIT-C (Alcohol use) form ?Yes . ? Illicit drug use in Social History ?Yes . ? Current diagnosis of depression? ?No ? Appropriate PHQ2/PHQ9 completed ?Yes . ? Data entered by ?Calibration Laboratory Technician and reviewed by provider ? Fall Risk ? Fall History? Have you had any falls with injury in the past year? ?No . ? Have you had two or more falls in the past year? ?No . ? Fall Risk Assessment: ?No falls in the past year . ? HRA filled out by the patient, reviewed by Provider and scanned. ?SWV ? Balance? Romberg negative ? Tandem walk ?Yes . ? Walk and Turn ?Yes . ? Rise from sit to stand ?Yes . ?Vision? Corrective lens ?Yes ? Vision screen ? Up-to-date, sees Dr. Guerra, who recently did her cataract surgery, has an upcoming appointment this week ?Hearing? Whisper test ?pass, wears hearing aids . ?Written Plan?Completed. See Patient Documents.? [facility] Medical History (Updated 08/08/25 @ 10:17 by Yany Santos MD) Immunity status testing Acquired hypothyroidism Hyperlipidemia Generalized anxiety disorder with panic attacks Bilateral hearing loss Varicose veins of both lower extremities Chronic osteoarthritis Tubular adenoma of colon Osteoporosis Surgical History S/P tubal ligation S/P right oophorectomy Family History Brother Bipolar 1 disorder Mental health disorder Mother Generalized anxiety disorder Sister Skin cancer of face Oral cancer Father Oral cancer Social History Housing: House Patient Tobacco Use Status: Never used Tobacco e-Cigarette/Vaping Use: Never Used service: No Current occupational status: retired Cognitive needs: No Hearing needs: No Vision needs: Yes Questionnaire Medicare Wellness Checkup [age] What gender do you identify with?: female During the past 4 weeks, how much have you been bothered by emotional problems such as feeling anxious, depressed, irritable, sad or downhearted, and blue?: slightly During the past 4 weeks, has your physical & emotional health limited your social activities with family, friends, neighbors, or groups?: not at all During the past 4 weeks, how much bodily pain have you generally had?: moderate pain During the past 4 weeks, was someone available to help you if you needed & wanted help?: yes, as much as I wanted During the past 4 weeks, what was the hardest physical activity you could do for at least 2 minutes?: moderate Can you get to places out of walking distance without help? (For eg., can you travel alone on buses, taxis or drive your car?): Yes Can you go shopping for groceries or clothes without someone's help?: Yes Can you prepare your own meals?: Yes Can you do your housework without help?: Yes Because of any health problems, do you need the help of another person with your personal care needs such as eating, bathing, dressing or getting around the house?: No Can you handle your own money without help?: Yes During the past 4 weeks, how would you rate your health in general?: good During the past 4 weeks how have things been going for you?: pretty well Are you having difficulties driving your car?: no Do you always fasten your seat belt when you are in a car?: yes, usually During past 4 weeks, have you been bothered by the following: never: Falling or dizzy when standing up, Trouble eating well?, Teeth or denture problems? and Problems using the telephone?, sometimes: Sexual problems? and often: Tiredness or fatigue? Have you fallen 2 or more times in the past year?: Yes Are you afraid of falling?: Yes Are you a smoker?: no During the past 4 weeks, how many drinks of wine, beer, or other alcoholic beverages did you have?: no alcohol at all Do you exercise for about 20 minutes 3 or more times a week?: yes, some of the time Have you been given information to help with the following?: no: Hazards in your house that might hurt you? and no: Keeping track of your medications? How often do you have trouble taking medicines the way you have been told to take them?: I always take medicine as prescribed How confident are you that you can control & manage most of your health problems?: somewhat confident What is your race?: White Mini Mental State Exam (MMSE) Orientation What is the (year) (season) (date) (day) (month)?: year (2024), season (summer), date (08/08/25), day (friday) and month () Where are we (state) (county) (town or city) (hospital) (floor)?: state ([facility]), county ([place]), town or city ([place]) and hospital/clinic ([facility]) Score Score: 9 Activity of Daily Living Bathing - sponge bath, tub bath or shower: receives no assistance (gets in/out by self, if usual bathing means Dressing - getting clothes from closets & drawers, including inner/outer garments & fasteners.: gets clothes & gets completely dressed without help Toileting - going to the 'toilet room' for urine/bowel elimination & cleaning self/arranging clothes: goes to toilet room, cleans self, arranges clothes without help Transfer: moves in & out of bed and chair without help (may use support object) Continence: controls urination/bowel movements completely by self Feeding: feeds self without help Total Score: 0 Information obtained from: patient Using telephone: independent Traveling: independent Shopping: independent Preparing meals: independent Housework: independent Taking medicine: independent Managing money: independent PHQ-9 Over the last 2 weeks, how often have you been bothered by any of the following problems? 1. Little interest or pleasure in doing things: not at all 2. Feeling down, depressed, or hopeless: not at all 3. Trouble falling or staying asleep, or sleeping too much: several days 4. Feeling tired or having little energy: several days 5. Poor appetite or overeating: not at all 6. Feeling bad about yourself - or that you are a failure or have let yourself or your family down: not at all 7. Trouble concentrating on things, such as reading the newspaper or watching television: not at all 8. Moving or speaking so slowly that other people could have noticed. Or the opposite - being so fidgety or restless that you have been moving around a lot more than usual: not at all 9. Thoughts that you would be better off or of hurting yourself in some way: not at all Total score: 2 Depression Screening Interpretation: Negative Depression Screening Done: Yes 63885 - PHQ-9 Billing: Yes Source: Developed by Drs. Best Huizar, Teodora Briggs, Marques Perez and colleagues, with an educational shani from [employer]. Review of Systems Const Details: - Endocrine: Reports fatigue, consistent with hypothyroidism. - Musculoskeletal: Reports sciatic nerve pain, managed with Tylenol and stretching. - Musculoskeletal: Reports arthritis pain, managed with Tylenol. Physical Exam Vital Signs: Last Vital Signs Temp 98.0 F 08/08/25 09:33 Pulse 64 08/08/25 09:33 Resp 16 08/08/25 09:33 BP 108/64 08/08/25 09:33 Pulse Ox 97 08/08/25 09:33 Oxygen Delivery Method Room Air 08/08/25 09:33 BMI result Body Mass Index 22.5 Const Other: Alert oriented x3, no acute distress noted ambulatory normal gait HEENT Head: Yes normocephalic Face and sinus: Yes face symmetric Mouth: Normal oral and palatal mucosa present and moist mucous membranes Eyes General: appearance normal, both eyes and all related structures Neck Other: Supple with no lymphadenopathy, thyroid gland nonpalpable Resp Auscultation: clear to auscultation bilaterally Cardio Other: S1-S2 present regular rate and rhythm GI Palpation (GI): Soft to palpation, nontender and no guarding Skin General skin exam: no rashes or lesions noted Neuro General: gait normal, tone normal, moves all extremities and no focal motor deficits Psych Appearance: grossly normal and well kempt Mental Status: mental status grossly normal Speech and movement: Normal speech and movement present Affect: normal affect Results Reviewed Results Reviewed: Name: Joselo Gonsalves Age/Sex: 69/F : 1955 Unit#: [id number] Attend Dr: Yany Santos MD Re08/04/25 Status: DEP REF Location: [facility] Disch: SPEC : [id number] MAHI: 08/04/25 STATUS: COMP REQ : [id number] RECD: 08/04/25-[address]: Yany Santos MD COMP: 08/04/25 ENTERED: 08/04/[address]: ORDERED: Met Prof Fast, AST, ALT, Lipid Panel, Free T4, TSH Test Result Flag Reference Sodium 143 135-145 mmol/L Potassium 4.3 3.3-5.1 mmol/L CL 107 96-108 mmol/L CO2 27 22-29 mmol/L Gap 13 12-20 BUN 17 H 9-16 mg/dL Creat 0.87 0.5-1.4 mg/dL eGFR > 60 Chronic Kidney Disease: Estimated GFR < 60 mL/min/1.73m2 Severe Kidney Disease: Estimated GFR < 15 mL/min/1.73m2 FBS 85 60-99 mg/dL CA 9.2 8.4-10.2 mg/dL AST (GOT) 31 5-31 U/L ALT (GPT) 21 0-31 U/L Triglyceride 75 <150 mg/dL Desirable Triglyceride: less than 150 mg/dL Borderline High Triglyceride 150-199 mg/dL High Triglyceride: 200-499 mg/dL Very High Triglyceride: greater than or equal to 5OO mg/dL Cholesterol 181 <200 mg/dL Desirable Cholesterol: less than 200 mg/dL Borderline High Cholesterol: 200-239 mg/dL High Cholesterol: greater than 239 mg/dL LDL Calculated 105 H <100 mg/dL Desirable LDL: less than 100 mg/dL Near Optimal/Above Optimal LDL: 110-129 mg/dL Borderline High LDL: 130-159 mg/dL High LDL: 160-189 mg/dL Very High LDL: greater than or equal to 190 mg/dL HDL 61 >40 mg/dL Desirable HDL: greater than 40 mg/dL Note: This HDL assay may give artificially low results in patients with liver disease. Free T4 0.69 L 0.71-1.85 ng/dL TSH 3rd Gen. 8.61 H 0.32-4.0 uIU/mL Note: A sustained TSH level above 2.5 uIU/mL may warrant further investigation. TSH 3rd Generation ([facility]) Assessment & Plan Assessment & Plan (1) Encounter for subsequent annual wellness visit in Medicare patient: Code(s): Z00.00 - Encounter for general adult medical examination without abnormal f indings Plan: Medical wellness checklist reviewed, discussed with patient and updated. Given copy. Reviewed immunization record, advised to get her 2nd shingles vaccine and get her yearly flu shot (2) Osteoporosis: Comment: sees Dr Ayala - on prolia Code(s): M81.0 - Age-related osteoporosis without current pathological fracture Qualifiers: Osteoporosis type: age-related Presence of current pathological fracture: without current pathological fracture Qualified Code(s): M81.0 - Age- related osteoporosis without current pathological fracture (3) Chronic osteoarthritis: Code(s): M19.90 - Unspecified osteoarthritis, unspecified site (4) Bilateral hearing loss: Comment: has hearing aids from [employer] Code(s): H91.93 - Unspecified hearing loss, bilateral Qualifiers: Hearing loss type: unspecified Qualified Code(s): H91.93 - Unspecified hearing loss, bilateral Plan: Has hearing in (5) Generalized anxiety disorder with panic attacks: Code(s): F41.1 - Generalized anxiety disorder; F41.0 - Panic disorder [episodic paroxysmal anxiety] Plan: On fluoxetine and takes lorazepam as needed 2. (6) Hyperlipidemia: Code(s): E78.5 - Hyperlipidemia, unspecified Qualifiers: Hyperlipidemia type: pure hypercholesterolemia Qualified Code(s): E78.00 - Pure hypercholesterolemia, unspecified (7) Acquired hypothyroidism: Code(s): E03.9 - Hypothyroidism, unspecified Plan Patient was informed and verbally consented to the use of an ambient scribe for clinic note documentation during this visit. 1. Hypothyroidism The patient's thyroid hormone dosage will be increased from 100 mcg to 112 mcg daily, with a follow-up blood test scheduled in October to reassess thyroid function. 2. Hyperlipidemia The patient will continue taking simvastatin 40 mg at bedtime to manage cholesterol levels, with a follow-up lipid panel scheduled in October. 3. Sciatica The patient is advised to continue using Tylenol and stretching exercises to manage sciatic nerve pain. 4. Arthritis The patient is advised to continue using Tylenol for arthritis pain management. 5. Tubular Adenoma The patient is scheduled for a follow-up colonoscopy in 2026 after the removal of tubular adenomas in 2021. Orders: Orders Triiodothyronine T3 Free 10/31/25 E03.9 - Hypothyroidism, unspecified, E78.00 - Pure hypercholesterolemia, unspecified, Z00.00 - Encounter for general adult medical examination without abnormal findings, Z01.84 - Encounter for antibody response examination Free T4 (Free Thyroxine) 10/31/25 E03.9 - Hypothyroidism, unspecified, E78.00 - Pure hypercholesterolemia, unspecified, Z00.00 - Encounter for general adult medical examination without abnormal findings, Z01.84 - Encounter for antibody response examination Varicella IgG Antibody 10/31/25 E03.9 - Hypothyroidism, unspecified, E78.00 - Pure hypercholesterolemia, unspecified, Z00.00 - Encounter for general adult medical examination without abnormal findings, Z01.84 - Encounter for antibody response examination Thyroid Stimulating Hormone 10/31/25 E03.9 - Hypothyroidism, unspecified, E78.00 - Pure hypercholesterolemia, unspecified, Z00.00 - Encounter for general adult medical examination without abnormal findings, Z01.84 - Encounter for a ntibody response examination Lipid Panel 10/31/25 E03.9 - Hypothyroidism, unspecified, E78.00 - Pure hypercholesterolemia, unspecified, Z00.00 - Encounter for general adult medical examination without abnormal findings, Z01.84 - Encounter for antibody response examination Medications: New levothyroxine (Levoxyl) 112 mcg PO DAILY 90 tabs 1RF Discontinued levothyroxine Discontinued Reason: Doctor's Order 100 mcg PO DAILY 90 tabs 4RF Quality Reporting (2019) Depression/Bipolar (159/160/161/177) PHQ-9: Total score: 2 Coding Level of Care Code Medicare Subsequent (G0439) Est Pt Level 3 (89440) Diagnoses Encounter for subsequent annual wellness visit in Medicare patient Z00.00 Age-related osteoporosis without current pathological fracture M81.0 Osteoporosis type: age-related Presence of current pathological fracture: without current pathological fracture Chronic osteoarthritis M19.90 Bilateral hearing loss, unspecified hearing loss type H91.93 Hearing loss type: unspecified Generalized anxiety disorder with panic attacks F41.1; F41.0 Pure hypercholesterolemia E78.00 Hyperlipidemia type: pure hypercholesterolemia Acquired hypothyroidism E03.9 Additional Codes PHQ-9 - 41385 - PHQ-9 Billing: Yes ([id number])
--- OUTSIDE RECORDS SUMMARY | 2025-08-08 10:13 | XMS_ITS | Patient Health Record ---
Author Organization [facility] Address [address] [place] [id number] Care Team Providers Care Circular Stuffer Name Role Phone Best Rankin [phone] Reason For Referral No Information Plan Of Treatment No Information
== END 2025-08-08 10:34 | disposition home or self-care (01) ==
LOC: HO.HMCC 09:03
PROVIDERS: PCP Internal Medicine; Visit Provider Internal Medicine
DX: Z00.00 Encounter for general adult medical examination without abnormal findings (principal); M81.0 Age-related osteoporosis without current pathological fracture; M19.90 Unspecified osteoarthritis, unspecified site; H91.93 Unspecified hearing loss, bilateral; F41.1 Generalized anxiety disorder; F41.0 Panic disorder [episodic paroxysmal anxiety]; E78.00 Pure hypercholesterolemia, unspecified; E03.9 Hypothyroidism, unspecified

== ENCOUNTER → 2025-08-08 09:02 | Outpatient (BNVA) | payer MEDICARE, SELFPAY | PROVIDERS: PCP Internal Medicine; Visit Provider Internal Medicine | DX: Z00.00 Encounter for general adult medical examination without abnormal findings (principal); M81.0 Age-related osteoporosis without current pathological fracture; E03.9 Hypothyroidism, unspecified; E78.5 Hyperlipidemia, unspecified; F41.1 Generalized anxiety disorder; M19.90 Unspecified osteoarthritis, unspecified site; H91.93 Unspecified hearing loss, bilateral; F41.0 Panic disorder [episodic paroxysmal anxiety]; E78.00 Pure hypercholesterolemia, unspecified | CPT/HCPCS: 96127; 99212 ==

== ENCOUNTER 2025-10-31 08:55 | Outpatient (REF) | payer MEDICARE, SELFPAY ==
--- OUTSIDE RECORDS SUMMARY | 2025-10-31 10:12 | XMS_ITS | Patient Health Record ---
Author Organization [facility] Address [address] [place] [id number] Care Team Providers Care Entry Level Sales Associate Name Role Phone Best Rankin [phone] Reason For Referral No Information Plan Of Treatment No Information
[2025-10-31 12:03] LABS: Free T4 (Free Thyroxine) 0.91 ng/dL (0.71-1.85); Thyroid Stimulating Hormone 2.83 uIU/mL (0.32-4.0)
[2025-10-31 12:10] LABS: Cholesterol 208 mg/dL (<200); HDL Cholesterol 66 mg/dL (>40); Triglycerides 87 mg/dL (<150)
== END 2025-10-31 08:56 | disposition home or self-care (01) ==
LOC: HO.HMGCLDS 08:55
PROVIDERS: PCP Internal Medicine; Visit Provider Internal Medicine
DX: Z00.00 Encounter for general adult medical examination without abnormal findings (principal); Z01.84 Encounter for antibody response examination; E78.00 Pure hypercholesterolemia, unspecified; E03.9 Hypothyroidism, unspecified
CPT/HCPCS: 36415; 80061; 84439; 84443; 84481; 86787

== ENCOUNTER 2025-11-09 08:50 | Outpatient (AMB) | payer MEDICARE, SELFPAY ==
--- NOTE | 2025-11-09 09:38 | A.OFFPC_ITS ---
Vital Signs 11/09/25 09:47 Height 5 ft 3 in Weight 128 lb BMI 22.7 BP 110/66 Blood Pressure Location Lt brachial Position Sitting Respiration 16 Pulse 61 Pulse Source Pulse Oximeter Temp 97.5 F Temp Source Oral Pulse Oximetry (%) 96 Oxygen Delivery Method Room Air Intake Visit Reasons: follow up thyroid after fasting labs Intake Note: Pt is here today for her f/u thyroid labs results C D Area Supervisor Required: No Allergies Penicillins Adverse Reaction (Verified 11/09/25 10:07) Hives Medication List - Last Reconciled 11/09/25 by Yany Santos MD acetaminophen ER 650 mg PO Q12H alprazolam 0.25 mg PO DAILY PRN aspirin (Adult Low Dose Aspirin) 81 mg PO DAILY calcium carbonate (Calcium 600) 50 mg PO DAILY cholecalciferol (vitamin D3) 50 mcg PO DAILY denosumab (Prolia) 60 mg subcut [id number] estradiol 0.01%(0.1mg/gram) 0.25 appful vaginal 3XW ezetimibe 10 mg PO DAILY fluoxetine 20 mg PO DAILY levothyroxine (Levoxyl) 112 mcg PO DAILY simvastatin 40 mg PO BEDTIME Tobacco use date assessed: 11/09/25 Last assessed Fall Risk: 11/09/25 Dental Screening Dental Screen Date: 11/09/25 Did you have a dental visit in the last 12 months?: Yes Did you have a dental problem in the last 6 months where you did not have access to dental care?: No Was dental information given to patient?: Patient has dentist HPI follow up thyroid after fasting labs HPI Details The patient is a 69-year-old female presenting for a follow-up visit . She has a history of hypothyroidism and is currently taking levothyroxine 112 mcg, with recent thyroid function tests showing normal results , with a T4 of 0.91 and a normal TSH. Her cholesterol has increased, which she attributes to her dietary indiscretions during the recent iday. She is on the maximum dose of simvastatin 40 mg. She reports drinking whole Lactaid milk and denies experiencing bloating from it. Her blood sugar is normal at 85. The patient receives Prolia injections from Dr. Anguiano at [facility] for osteoporosis, with the next one scheduled for December. She has a history of a foot fracture and is no longer followed by [facility], but she continues to experience intermittent burning sensations at the fracture site. She takes fluoxetine and alprazolam, with her last refills being in October. She also uses estradiol and takes [id number] vitamin D3. For sleep and arthritis pain, the patient uses marijuana gummies, which she reports helps with sleep and burning sensations from her old foot injury. She has been experiencing sleep disturbances, waking up after only a few hours of sleep, which she relates to a lack of routine and anticipatory grief over the first anniversary of her sister's . Regarding vaccinations, she is up-to-date on flu and COVID-19 shots, received a month ago, and has had her pneumonia vaccine. She has received only one dose of the shingles vaccine. Her shingles immunity has waned, with titers dropping from 3,202 last year to 19 recently. She reports a history of chickenpox and has residual scars. [facility] Medical History History of fracture of left ankle Immunity status testing Acquired hypothyroidism Hyperlipidemia Generalized anxiety disorder with panic attacks Bilateral hearing loss Varicose veins of both lower extremities Chronic osteoarthritis Tubular adenoma of colon Osteoporosis Surgical History S/P tubal ligation S/P right oophorectomy Family History Brother Bipolar 1 disorder Mental health disorder Mother Generalized anxiety disorder Sister Skin cancer of face Oral cancer Father Oral cancer Social History Housing: House Patient Tobacco Use Status: Never used Tobacco e-Cigarette/Vaping Use: Never Used service: No Current occupational status: retired Cognitive needs: No Hearing needs: No Vision needs: Yes Questionnaire PHQ-9 Over the last 2 weeks, how often have you been bothered by any of the following problems? 1. Little interest or pleasure in doing things: not at all 2. Feeling down, depressed, or hopeless: not at all 3. Trouble falling or staying asleep, or sleeping too much: several days 4. Feeling tired or having little energy: several days 5. Poor appetite or overeating: not at all 6. Feeling bad about yourself - or that you are a failure or have let yourself or your family down: not at all 7. Trouble concentrating on things, such as reading the newspaper or watching television: not at all 8. Moving or speaking so slowly that other people could have noticed. Or the opposite - being so fidgety or restless that you have been moving around a lot more than usual: not at all 9. Thoughts that you would be better off or of hurting yourself in some way: not at all Total score: 2 Depression Screening Interpretation: Negative Depression Screening Done: Yes Source: Developed by Drs. Best Huizar, Teodora Briggs, Marques Perez and colleagues, with an educational shani from [employer]. Thrive Questionnaire Date Thrive assessed: 01/11/25 I am a: Patient What is your living situation today?: I have a steady place to live Within the past 12 months, did the food you bought not last and you didn't have the money to get more?: Never true Within the past 12 months, did you worry whether your food would run out before you got money to buy more?: Never true Do you have trouble paying for medicines?: No Do you have trouble getting transportation to medical appointments?: No Do you have trouble paying your heating and electricity bill?: No Do you have trouble taking care of your child, family member or friend?: No Do you have trouble with day-to-day activities such as bathing, preparing meals, shopping, managing finances, etc.?: No Are you currently unemployed and looking for a job?: No Are you interested in more education?: No Please select the resources that you would like help with: None Currently or been in a relationship where the following occur: No concerns reported and I choose not to answer THRIVE Score: 0 LYNN-7 AMB Questionnaire LYNN-7 Date LYNN - 7 assessed: 03/10/25 Feeling nervous, anxious, or on edge: 1 = Several days Not being able to stop or control worryin = Not at all Worrying too much about different things: 0 = Not at all Trouble relaxin = More than half the days Being so restless that it is hard to sit still: 0 = Not at all Becoming easily annoyed or irritable: 0 = Not at all Feeling afraid as if something awful might happen: 0 = Not at all Total LYNN-7 score (0-4 normal; 5-9 mild; 10-14 moderate; 15-21 severe): 3 Source: Developed by Drs. Best Huizar, Teodora Briggs, Marques Perez and colleagues, with an educational shani from [employer]. Review of Systems Const Denies fatigue, Denies fever(s), Denies headache(s) and Denies malaise Eyes Denies change in vision and Reports requires corrective lenses ENT Denies headache(s) Card Reports no additional complaints Resp Reports no additional complaints GI Reports no additional complaints Reports no additional complaints Musc Reports arthralgias and Reports stiffness Skin/Breast Reports dry skin Neuro Reports no additional complaints and Denies headache(s) Psych Reports no additional complaints Endo Reports no additional complaints and Denies fatigue Ric/Lymph Reports no additional complaints Aller/Immun Reports as per HPI Physical exam (Primary Care) Vital Signs: Last Vital Signs Temp 97.5 F 11/09/25 09:47 Pulse 61 11/09/25 09:47 Resp 16 11/09/25 09:47 BP 110/66 11/09/25 09:47 Pulse Ox 96 11/09/25 09:47 Oxygen Delivery Method Room Air 11/09/25 09:47 BMI result Body Mass Index 22.7 Tobacco/Smoking Status: Tobacco use Status Tobacco use date assessed 11/09/25 11/09/25 09:43 Patient Tobacco Use Status Never used Tobacco 11/09/25 09:43 e-Cigarette/Vaping Use Never Used 11/09/25 09:43 PHQ-9: PHQ-9 Score PHQ-9: Total score 2 11/09/25 10:07 Depression Screening Interpretation: Negative Thrive Assessment: Date of Thrive Assessment Date Thrive assessed 01/11/25 11/09/25 09:43 Currently or been in a relationship where the following occur: No concerns reported and I choose not to answer Const General: no acute distress Orientation/consciousness: patient oriented x3 HENMT Head: Yes normocephalic General nose exam: Normal external nose present Face and sinus: Yes face symmetric Mouth: moist mucous membranes Eyes General: appearance normal, both eyes and all related structures Neck Neck: Yes full ROM, Yes no lymphadenopathy and Yes supple Thyroid: Thyroid normal (Nonpalpable) Resp Effort & Inspection: normal respiratory effort and able to speak in complete sentences Auscultation: clear to auscultation bilaterally Cardio Rate: regular rate Rhythm: regular rhythm Heart sounds: S1 normal heart sound present and S2 normal heart sound present GI Palpation (GI): Soft to palpation, nontender, no guarding and no masses Auscultation: normal bowel sounds General: Yes no CVA tenderness Back/Spine/Pelvis Back: no CVA tenderness and No back tenderness Skin General skin exam: no rashes or lesions noted Neuro General: patient oriented x3, gait normal, tone normal, no focal motor deficits and CN's II-XI intact bilaterally Extrem General: Yes full ROM, Yes no joint enlargement, Yes no pedal edema and Yes normal gait Psych Appearance: grossly normal Mental Status: mental status grossly normal Speech and movement: Normal speech and movement present Affect: normal affect Results Reviewed Results Reviewed: RUN: 11/09/25 1002 PAGE 1 [facility] [address] [place] [id number] Production Sorter: Simeon Chacon M.D. Specimen Inquiry Name: Joselo Gonsalves Age/Sex: 69/F : 1955 Unit#: [id number] Attend Dr: Yany Santos MD Re10/31/25 Status: DEP [facility]: SPEC : [id number] MAHI: 10/31/25 STATUS: COMP REQ : [id number] RECD: 10/31/[address]: Yany Santos MD COMP: 10/31/25 ENTERED: 10/31/[address]: ORDERED: Lipid Panel, Free T4, TSH Test Result Flag Reference Triglyceride 87 <150 mg/dL Desirable Triglyceride: less than 150 mg/dL Borderline High Triglyceride 150-199 mg/dL High Triglyceride: 200-499 mg/dL Very High Triglyceride: greater than or equal to 5OO mg/dL Cholesterol 208 H <200 mg/dL Desirable Cholesterol: less than 200 mg/dL Borderline High Cholesterol: 200-239 mg/dL High Cholesterol: greater than 239 mg/dL LDL Calculated 125 H <100 mg/dL Desirable LDL: less than 100 mg/dL Near Optimal/Above Optimal LDL: 110-129 mg/dL Borderline High LDL: 130-159 mg/dL High LDL: 160-189 mg/dL Very High LDL: greater than or equal to 190 mg/dL HDL 66 >40 mg/dL Desirable HDL: greater than 40 mg/dL Note: This HDL assay may give artificially low results in patients with liver disease. Free T4 0.91 0.71-1.85 ng/dL TSH 3rd Gen. 2.83 0.32-4.0 uIU/mL Note: A sustained TSH level above 2.5 uIU/mL may warrant further investigation. Coding Level of Care Code Est Pt Level 4 (62779) Diagnoses Acquired hypothyroidism E03.9 Pure hypercholesterolemia E78.00 Hyperlipidemia type: pure hypercholesterolemia Generalized anxiety disorder with panic attacks F41.1; F41.0 Assessment & Plan Assessment & Plan (1) Acquired hypothyroidism: Code(s): E03.9 - Hypothyroidism, unspecified Category: Medical Plan: The patient's thyroid function is stable on levothyroxine 112 mcg, with a normal free T4 of 0.91 and a TSH within the normal range. The plan is to continue the current dosage of levothyroxine (2) Hyperlipidemia: Code(s): E78.5 - Hyperlipidemia, unspecified Category: Medical Qualifiers: Hyperlipidemia type: pure hypercholesterolemia Qualified Code(s): E78.00 - Pure hypercholesterolemia, unspecified Plan: The patient's cholesterol is elevated, likely due to diet around the holidays. She is already on the maximum dose of simvastatin 40 mg. The plan is to monitor her cholesterol levels. If the LDL remains above 130, a change in medication will be considered. I advised her to switch from whole milk to 1% or 2% milk to help lower her cholesterol. A repeat lipid panel will be ordered for January or March. (3) Generalized anxiety disorder with panic attacks: Code(s): F41.1 - Generalized anxiety disorder; F41.0 - Panic disorder [episodic paroxysmal anxiety] Category: Medical Plan: The patient continues fluoxetine and has alprazolam as needed. She reports using marijuana gummies for sleep and arthritis, which helps. I advised her not to take alprazolam and marijuana gummies together to avoid excessive sedation. Her insomnia is likely exacerbated by a lack of routine and situational stress. Orders: Orders Lipid Panel 03/01/26 E78.00 - Pure hypercholesterolemia, unspecified, E03.9 - Hypothyroidism, unspecified Aspartate Amino Transferase 03/01/26 E78.00 - Pure hypercholesterolemia, unspecified, E03.9 - Hypothyroidism, unspecified Alanine Aminotransferase 03/01/26 E7.00 - Pure hypercholesterolemia, unspecified, E03.9 - Hypothyroidism, unspecified Thyroid Stimulating Hormone 03/01/26 E78.00 - Pure hypercholesterolemia, unspecified, E03.9 - Hypothyroidism, unspecified Glucose Fasting 03/01/26 E78.00 - Pure hypercholesterolemia, unspecified, E03.9 - Hypothyroidism, unspecified Basic Metabolic Panel Fasting 03/01/26 E78.00 - Pure hypercholesterolemia, unspecified, E03.9 - Hypothyroidism, unspecified Free T4 (Free Thyroxine) 03/01/26 E78.00 - Pure hypercholesterolemia, unspecified, E03.9 - Hypothyroidism, unspecified
[2025-11-09 09:47] VITALS: BP 110/66; PULSE 61; RESP 16; TEMP 36.4; O2SAT 96; BMI 22.7
== END 2025-11-09 10:22 | disposition home or self-care (01) ==
LOC: HO.HMCC 08:50
PROVIDERS: PCP Internal Medicine; Visit Provider Internal Medicine
DX: E03.9 Hypothyroidism, unspecified (principal); E78.00 Pure hypercholesterolemia, unspecified; F41.1 Generalized anxiety disorder; F41.0 Panic disorder [episodic paroxysmal anxiety]

== ENCOUNTER → 2025-11-09 08:50 | Outpatient (BNVA) | payer MEDICARE, SELFPAY | PROVIDERS: PCP Internal Medicine; Visit Provider Internal Medicine | DX: F41.0 Panic disorder [episodic paroxysmal anxiety] (principal); E78.00 Pure hypercholesterolemia, unspecified; E03.9 Hypothyroidism, unspecified; Z13.31 Encounter for screening for depression | CPT/HCPCS: 96127; 99212 ==